=== PATIENT | male | born 1950 | race Caucasian/White ===

== ENCOUNTER 2017-01-30 08:00 | Outpatient (CLI) | payer MEDICARE, MEDICAID | END 2017-01-30 08:01 | disposition home or self-care (01) | DX: E11.9 Type 2 diabetes mellitus without complications (principal); E78.5 Hyperlipidemia, unspecified; Z12.5 Encounter for screening for malignant neoplasm of prostate | CPT/HCPCS: 36415; 80053; 80061; 82043; 83036; 84443; G0103 ==

== ENCOUNTER 2017-05-08 08:00 | Outpatient (CLI) | payer MEDICARE, MEDICAID | END 2017-05-08 23:59 | disposition home or self-care (01) | DX: R10.9 Unspecified abdominal pain (principal) ==

== ENCOUNTER 2017-05-15 07:11 | Outpatient (CLI) | payer MEDICARE, MEDICAID ==
--- NOTE | 2017-05-15 14:05 | Ultrasound Report ---
ABDOMINAL ULTRASOUND: 05/15/2017 CLINICAL HISTORY: The patient has chronic abdominal pain. TECHNIQUE: Real-time scanning was performed with international representative static images obtained. FINDINGS: The liver appears normal. It has a length of 15.5 cm. The portal vein shows normal hepatop etal flow. The gallbladder shows no wall thickening. No calculi are seen. The common hepatic/common bile duct me asure 3.5 mm. This is within normal limits. Head and body of the pancreas are visualized and normal. The pancreatic tail is obscured by bowel gas. The right kidney measures 11.9 cm without pyelocaliceal system distention. The left kidney measures 1 1.8 cm. There is a cyst extending from the posterior mid portion of the left kidney measuring 1.3 cm by 0.9 cm by 1.3 cm. The spleen is within normal limits. The spleen has a length of 10.2 cm. The abdominal aorta shows no aneurysm. It has a diameter proximally of 2.3 cm. Its mid diameter is 1. 8 cm. Its distal diameter is 1.5 cm by 1.7 cm. IMPRESSION: AN 1.3 CM BY 0.9 CM BY 1.3 CM LEFT RENAL CYST IS NOTED WITHOUT OTHER ABNORMALITY. JOB #: [id number] EXT JOB #:[id number]
== END 2017-05-15 07:12 | disposition home or self-care (01) ==
LOC: DI 07:11
PROVIDERS: ATTEND Nurse Practitioner Family
DX: Q61.01 Congenital single renal cyst (principal)
CPT/HCPCS: 76700

== ENCOUNTER 2017-07-05 08:29 | Outpatient (CLI) | payer MEDICARE, MEDICAID ==
[2017-07-05 11:13] LABS: HEMOGLOBIN A1C 1.32 g/dL
== END 2017-07-05 08:30 | disposition home or self-care (01) ==
LOC: LAB.F 08:29
PROVIDERS: ATTEND Nurse Practitioner Family
DX: E11.9 Type 2 diabetes mellitus without complications (principal)
CPT/HCPCS: 36415; 82043; 83036

== ENCOUNTER 2017-12-11 09:02 | Outpatient (CLI) | payer MEDICARE, MEDICAID ==
[2017-12-11 18:12] LABS: HB2 TOTAL 17.9 g/dL; HEMOGLOBIN A1C 1.3 g/dL; HEMOGLOBIN A1C % 8.8 % (4.6-6.2)
[2017-12-11 18:19] LABS: ALBUMIN 4.5 g/dL (3.2-5.5); ALBUMIN/GLOBULIN RATIO 1.7 (1.0-2.2); ALKALINE PHOSPHATASE 85 IU/L (42-121); ALT ALANINE AMINOTRANSFERASE 22 IU/L (10-60); AST ASPARTATE AMINOTRANSFERASE 18 IU/L (10-42); BILIRUBIN,TOTAL 0.6 mg/dL (0.2-1.0); BUN - BLOOD UREA NITROGEN 11 mg/dL (6-20); CALCIUM 9.1 mg/dL (8.5-10.3); CARBON DIOXIDE - CO2 22 mmol/L (21-32); CHLORIDE 100 mmol/L (101-111); CHOL/HDL RATIO 5.4 (<5.0); CHOLESTEROL 152 mg/dL; CREATININE 0.7 mg/dL (0.6-1.2); GFR - MDRD 113 (>89); GLUCOSE 230 mg/dL (70-100); HDL CHOLESTEROL 28 mg/dL; LDL CHOLESTEROL,CALCULATED 87 mg/dL; LDL/HDL RATIO 3.1 (<3.6); SODIUM 134 mmol/L (135-145); TOTAL PROTEIN 7.2 g/dL (6.7-8.2); VLDL CHOLESTEROL 37 mg/dL
== END 2017-12-11 09:03 | disposition home or self-care (01) ==
LOC: LAB.S 09:02
PROVIDERS: ATTEND Nurse Practitioner Family
DX: I10 Essential (primary) hypertension (principal); E11.9 Type 2 diabetes mellitus without complications; Z12.5 Encounter for screening for malignant neoplasm of prostate
CPT/HCPCS: 36415; 80053; 80061; 83036; G0103; 83721; 84153

== ENCOUNTER 2018-06-11 08:00 | Outpatient (CLI) | payer MEDICARE, MEDICAID ==
[2018-06-11 18:03] LABS: BASOPHILS # (AUTO) 0.1 10^3/uL (0.0-0.1); BASOPHILS % (AUTO) 0.6 %; EOSINOPHILS # (AUTO) 0.2 10^3/uL (0.0-0.7); EOSINOPHILS % (AUTO) 1.9 %; HGB - HEMOGLOBIN 14.6 g/dL (14.0-18.0); LYMPHOCYTES # (AUTO) 1.5 10^3/uL (1.5-3.5); LYMPHOCYTES % (AUTO) 11.9 %; MEAN CORPUSCULAR HEMOGLOBIN 31.3 pg (27.0-31.0); MEAN CORPUSCULAR HGB CONC 33.9 g/dL (32.0-36.0); MEAN CORPUSCULAR VOLUME 92.3 fL (80.0-94.0); MONOCYTES # (AUTO) 0.6 10^3/uL (0.0-1.0); MONOCYTES % (AUTO) 4.7 %; NEUTROPHILS # (AUTO) 9.9 10^3/uL (1.5-6.6); NEUTROPHILS % (AUTO) 80.9 %; PLT - PLATELET COUNT 209 10^3/uL (130-450); RED BLOOD COUNT 4.66 10^6/uL (4.70-6.10); RED CELL DISTRIBUTION WIDTH 14.2 % (12.0-15.0); WHITE BLOOD COUNT 12.3 x10^3/uL (4.8-10.8)
[2018-06-11 18:25] LABS: CALCIUM 8.9 mg/dL (8.5-10.3); CREATININE 0.6 mg/dL (0.6-1.2)
[2018-06-11 20:17] LABS: HB2 TOTAL 15.4 g/dL; HEMOGLOBIN A1C 1.02 g/dL; HEMOGLOBIN A1C % 8.2 % (4.6-6.2)
== END 2018-06-11 08:01 | disposition home or self-care (01) ==
LOC: LAB.S 08:00
PROVIDERS: ATTEND Nurse Practitioner Family
DX: E11.9 Type 2 diabetes mellitus without complications (principal); I10 Essential (primary) hypertension; R10.13 Epigastric pain
CPT/HCPCS: 36415; 80048; 83036; 85025

== ENCOUNTER 2018-08-07 13:06 | Outpatient (CLI) | payer MEDICARE ==
[2018-08-07 17:49] LABS: ALBUMIN 4.4 g/dL (3.2-5.5); ALBUMIN/GLOBULIN RATIO 1.6 (1.0-2.2); BILIRUBIN,TOTAL 0.6 mg/dL (0.2-1.0); CREATININE 0.8 mg/dL (0.6-1.2); TOTAL PROTEIN 7.2 g/dL (6.7-8.2)
[2018-08-07 17:56] LABS: BASOPHILS # (AUTO) 0.1 10^3/uL (0.0-0.1); BASOPHILS % (AUTO) 0.6 %; EOSINOPHILS # (AUTO) 0.2 10^3/uL (0.0-0.7); EOSINOPHILS % (AUTO) 1.8 %; HGB - HEMOGLOBIN 15.5 g/dL (14.0-18.0); LYMPHOCYTES % (AUTO) 15.7 %; MEAN CORPUSCULAR HEMOGLOBIN 31.1 pg (27.0-31.0); MEAN CORPUSCULAR HGB CONC 33.5 g/dL (32.0-36.0); MEAN CORPUSCULAR VOLUME 92.9 fL (80.0-94.0); MONOCYTES # (AUTO) 0.7 10^3/uL (0.0-1.0); MONOCYTES % (AUTO) 5.4 %; NEUTROPHILS # (AUTO) 9.8 10^3/uL (1.5-6.6); NEUTROPHILS % (AUTO) 76.5 %; PLT - PLATELET COUNT 206 10^3/uL (130-450); RED BLOOD COUNT 4.99 10^6/uL (4.70-6.10); RED CELL DISTRIBUTION WIDTH 13.9 % (12.0-15.0); WHITE BLOOD COUNT 12.8 x10^3/uL (4.8-10.8)
== END 2018-08-07 13:07 | disposition home or self-care (01) ==
LOC: LAB.F 13:06
PROVIDERS: ATTEND Nurse Practitioner Family
DX: R10.9 Unspecified abdominal pain (principal)
CPT/HCPCS: 36415; 80053; 85025

== ENCOUNTER 2018-08-16 08:12 | Day surgery (SDC) | payer MEDICAID, MEDICARE ==
[2018-08-16] MEDS ORDERED: LACTATED RINGERS 1,000 ML IV ONE (09:09)
[2018-08-16] MEDS ORDERED: LIDO GARGLE 30 ML BOTTLE ONE (09:19)
[2018-08-16] MEDS ORDERED: fentaNYL 250 MCG/5 ML VIAL IVP ONE (09:40)
[2018-08-16] MEDS ORDERED: MIDAZOLAM 2 MG/2 ML VIAL IVP ONE (09:40)
[2018-08-16] MEDS ORDERED: LIDO GARGLE 30 ML BOTTLE TOP ONE (09:45)
[2018-08-16 11:05] VITALS: BP 129/77
== END 2018-08-16 08:13 | disposition home or self-care (01) ==
LOC: SDS 08:12
PROVIDERS: ATTEND Internal Medicine Gastroenterology
PROC: 0DBK8ZX Excision of Ascending Colon, Via Natural or Artificial Opening Endoscopic, Diagnostic (ICD-10-PCS; 2018-08-16)
PROC: 0DB38ZX Excision of Lower Esophagus, Via Natural or Artificial Opening Endoscopic, Diagnostic (ICD-10-PCS; 2018-08-16)
PROC: 0DB78ZX Excision of Stomach, Pylorus, Via Natural or Artificial Opening Endoscopic, Diagnostic (ICD-10-PCS; 2018-08-16)
PROC: 0DB68ZZ Excision of Stomach, Via Natural or Artificial Opening Endoscopic (ICD-10-PCS; 2018-08-16)
PROC: 0DBN8ZZ Excision of Sigmoid Colon, Via Natural or Artificial Opening Endoscopic (ICD-10-PCS; principal; 2018-08-16 09:30)
PROC: 0DBP8ZZ Excision of Rectum, Via Natural or Artificial Opening Endoscopic (ICD-10-PCS; 2018-08-16 09:30)
DX: Z12.11 Encounter for screening for malignant neoplasm of colon (principal); D12.5 Benign neoplasm of sigmoid colon; D12.8 Benign neoplasm of rectum; D17.5 Benign lipomatous neoplasm of intra-abdominal organs; K57.30 Diverticulosis of large intestine without perforation or abscess without bleeding; K29.70 Gastritis, unspecified, without bleeding; K22.9 Disease of esophagus, unspecified; Z80.0 Family history of malignant neoplasm of digestive organs; F17.210 Nicotine dependence, cigarettes, uncomplicated; I10 Essential (primary) hypertension; E78.5 Hyperlipidemia, unspecified; F43.20 Adjustment disorder, unspecified; J30.9 Allergic rhinitis, unspecified; F19.11 Other psychoactive substance abuse, in remission; Z79.84 Long term (current) use of oral hypoglycemic drugs; Z72.89 Other problems related to lifestyle; Z85.820 Personal history of malignant melanoma of skin
CPT/HCPCS: 43239; 45380; 45385; 93005; A9270; J3010; J7120

== ENCOUNTER 2018-09-03 08:28 | Outpatient (CLI) | payer MEDICARE ==
[2018-09-03] MEDS ORDERED: IOPAMIDOL-300 100 ML VIAL ONE (08:35)
[2018-09-03] MEDS ORDERED: IOTHALAMATE MEGLUMINE 50 ML VIAL ONE (08:36)
[2018-09-03] MEDS ORDERED: IOVERSOL 320 50 ML VIAL ONE (08:37)
[2018-09-03] MEDS ORDERED: IOPAMIDOL-300 100 ML VIAL IVP ONE (09:47)
--- NOTE | 2018-09-03 11:00 | CT Report ---
Reason: ABDOMINAL PAIN, CHRONIC Procedure Date: 09/03/2018 Accession Number: [id number] / [id number] Procedure: CT - Abdomen/Pelvis W/ CPT Code: FULL RESULT: EXAM: CT ABDOMEN AND PELVIS EXAM DATE: 09/03/2018 09:40 AM. CLINICAL HISTORY: Abdominal pain, chronic. COMPARISONS: None. TECHNIQUE: Routine helical CT imaging was performed through the abdomen and pelvis. IV contrast: Isovue 300 100 mL. Enteric contrast: Yes. Reconstructions: Coronal and sagittal. In accordance with CT protocol optimization, one or more of the following dose reduction techniques were utilized for this exam: automated exposure control, adjustment of mA and/or KV based on patient size, or use of iterative reconstructive technique. FINDINGS: Lung Bases: Unremarkable. Liver: Normal. No masses. Gallbladder/Bile Ducts: Unremarkable. Spleen: Normal. Pancreas: Normal. Adrenal Glands: Normal. Kidneys: Normal. No masses or hydronephrosis. Peritoneal Cavity/Bowel: Marked diverticulosis throughout the descending and sigmoid colon, no active diverticulitis. No free fluid, free air or adenopathy. No masses or acute inflammatory process. The appendix is well visualized and normal. Pelvic Organs: Bladder is markedly distended and there is heterogeneous enhancement of the subjectively enlarged prostate gland, correlate to bladder outlet obstruction. Vasculature: Atherosclerosis without aneurysm. Bones: No aggressive osseous lesions. Other: None. IMPRESSION: Diverticulosis. Prominent prostate and markedly distended bladder should be correlated to symptomatic bladder outlet obstruction/BPH. RADIA
== END 2018-09-03 08:29 | disposition home or self-care (01) ==
LOC: DI 08:28
PROVIDERS: ATTEND Internal Medicine Gastroenterology
DX: K57.30 Diverticulosis of large intestine without perforation or abscess without bleeding (principal); R10.9 Unspecified abdominal pain; G89.29 Other chronic pain
CPT/HCPCS: 74177; 93005; Q9967

== ENCOUNTER 2018-11-26 08:00 | Outpatient (CLI) | payer MEDICARE ==
[2018-11-26 18:02] LABS: BUN - BLOOD UREA NITROGEN 13 mg/dL (6-20); CALCIUM 9.2 mg/dL (8.5-10.3); CARBON DIOXIDE - CO2 27 mmol/L (21-32); CHLORIDE 100 mmol/L (101-111); CHOL/HDL RATIO 3.5 (<5.0); CHOLESTEROL 136 mg/dL; CREATININE 0.6 mg/dL (0.6-1.2); GFR - MDRD 134 (>89); GLUCOSE 187 mg/dL (70-100); HDL CHOLESTEROL 39 mg/dL; LDL CHOLESTEROL,CALCULATED 78 mg/dL; SODIUM 135 mmol/L (135-145); VLDL CHOLESTEROL 19 mg/dL
[2018-11-26 19:33] LABS: HB2 TOTAL 16.4 g/dL; HEMOGLOBIN A1C 0.84 g/dL; HEMOGLOBIN A1C % 6.8 % (4.6-6.2)
== END 2018-11-26 23:59 | disposition home or self-care (01) ==
LOC: LAB.S 08:00
PROVIDERS: ATTEND Nurse Practitioner Family
DX: E11.65 Type 2 diabetes mellitus with hyperglycemia (principal); E78.5 Hyperlipidemia, unspecified; Z12.5 Encounter for screening for malignant neoplasm of prostate
CPT/HCPCS: 36415; 80048; 80061; 82043; 83036; G0103; 83721; 84153

== ENCOUNTER 2019-07-18 09:29 | Outpatient (CLI) | payer MEDICARE, MEDICAID ==
[2019-07-18 17:33] LABS: ALBUMIN 4.3 g/dL (3.2-5.5); ALBUMIN/GLOBULIN RATIO 1.4 (1.0-2.2); BILIRUBIN,TOTAL 0.6 mg/dL (0.2-1.0); CALCIUM 9.1 mg/dL (8.5-10.3); CREATININE 0.7 mg/dL (0.6-1.2); TOTAL PROTEIN 7.3 g/dL (6.7-8.2)
[2019-07-18 17:34] LABS: HB2 TOTAL 15.8 g/dL; HEMOGLOBIN A1C 0.93 g/dL; HEMOGLOBIN A1C % 7.5 % (4.6-6.2)
== END 2019-07-18 09:30 | disposition home or self-care (01) ==
LOC: LAB.S 09:29
PROVIDERS: ATTEND Internal Medicine
DX: E11.65 Type 2 diabetes mellitus with hyperglycemia (principal)
CPT/HCPCS: 36415; 80053; 83036

== ENCOUNTER 2019-09-20 08:55 | Outpatient (CLI) | payer MEDICARE, MEDICAID ==
[2019-09-20 10:50] LABS: HB2 TOTAL 15.1 g/dL; HEMOGLOBIN A1C 0.94 g/dL; HEMOGLOBIN A1C % 7.8 % (4.6-6.2)
== END 2019-09-20 08:56 | disposition home or self-care (01) ==
LOC: LAB.S 08:55
PROVIDERS: ATTEND Internal Medicine
DX: E11.65 Type 2 diabetes mellitus with hyperglycemia (principal)
CPT/HCPCS: 36415; 83036

== ENCOUNTER 2020-06-01 14:09 | Inpatient (IN) | payer MEDICARE, MEDICAID ==
[2020-06-01] MEDS ORDERED: SODIUM CHLORIDE 0.9% 1,000 ML IV STA ×2 (14:15→15:51)
[2020-06-01] MEDS ORDERED: HYDROmorphone 1 MG/ML CARPUJECT IVP STA (14:15)
--- NOTE | 2020-06-01 14:19 | ED Physician Documentation ---
PD HPI ABD PAIN - Stated complaint Stated Complaint: WEAKNESS - History obtained from History obtained from: Patient, EMS - Additional information Additional information: 69-year-old gentleman with type 2 diabetes presents with 5 days of abdominal pain, vomiting and diarrhea. He is also had episodic sharp and dull chest pain since last night. It is not exertional. There is no associated sweats but he has been short of breath. No history of coronary disease. No history of abdominal surgeries. No sick contacts, "I have been self isolating only leaving the house to go to the gas station and the [employer] store." Review of Systems Ten Systems: 10 systems reviewed and negative Constitutional: reports: Reviewed and negative Eyes: reports: Reviewed and negative Cardiac: reports: Chest pain / pressure. denies: Palpitations, Pedal edema, Calf pain Respiratory: reports: Dyspnea GI: reports: Abdominal Pain, Nausea, Vomiting, Diarrhea PD PAST MEDICAL HISTORY - Past Medical History Cardiovascular: Hypertension Respiratory: None GI: Other : None HEENT: None Psych: Anxiety, Panic attacks Musculoskeletal: Osteoarthritis, Chronic back pain Derm: None - Past Surgical History Derm: Skin cancer surgery - Present Medications Home Medications: Ambulatory Orders Medication Instructions Recorded Confirmed Lisinopril 40 mg PO DAILY 04/07/16 06/01/20 Sucralfate [Carafate] 1 gm PO QID 08/15/18 06/01/20 Gabapentin 300 mg PO DAILY 06/01/20 06/01/20 Insulin Glargine [Lantus Solostar] 5 units DAILY 06/01/20 06/01/20 Pantoprazole Sodium 20 mg PO DAILY 06/01/20 06/01/20 glipiZIDE [Glipizide] 1 tab-cap PO DAILY 06/01/20 06/01/20 - Allergies Allergies/Adverse Reactions: Allergies Allergy/AdvReac Type Severity Reaction Status Date / Time metformin AdvReac Intermediate GI Verified 06/01/20 14:41 sulfamethoxazole AdvReac Intermediate GI Verified 06/01/20 14:41 [From Bactrim] trimethoprim [From Bactrim] AdvReac Intermediate GI Verified 06/01/20 14:41 iodine AdvReac Unknown Verified 06/01/20 14:41 - Family History Family history: reports: Non contributory PD ED PE NORMAL - Vitals Vital signs reviewed: Yes - General General: Alert and oriented X 3, No acute distress - HEENT HEENT: PERRL, EOMI - Neck Neck: Supple, no meningeal sign, No bony TTP - Cardiac Cardiac: Other (Mild tachycardia, regular, no murmur) - Respiratory Respiratory: No respiratory distress, Clear bilaterally - Abdomen Abdomen: Other (Mild upper abdominal tenderness without surgical signs) - Back Back: No CVA TTP, No spinal TTP - Derm Derm: Normal color, Warm and dry - Extremities Extremities: No edema, No calf tenderness / cord - Neuro Neuro: Alert and oriented X 3, Normal speech Results - Vitals Vitals: Vital Signs - 24 hr 06/01/20 06/01/20 14:20 16:22 Temperature 36.7 C Heart Rate 100 86 Respiratory 18 16 Rate Blood Pressure 169/96 H 167/92 H O2 Saturation 100 99 Oxygen O2 Source Room air - EKG (time done) 1411 Rate: Rate (enter#) (100) Rhythm: NSR [place]: Normal Intervals: Normal SC QRS: Normal Ischemia: Normal ST segments Computer interpretation: Agree with computer - Labs Labs: Laboratory Tests 06/01/20 06/01/20 06/01/20 14:25 14:25 14:25 WBC 23.1 H RBC 5.52 Hgb 17.4 Hct 47.9 MCV 86.8 MCH 31.5 H MCHC 36.3 H RDW 12.2 Plt Count 303 MPV 10.2 Neut # (Auto) 20.8 H Lymph # (Auto) 1.1 L [place] # (Auto) 0.9 Eos # (Auto) 0.0 Baso # (Auto) 0.1 Absolute Nucleated RBC 0.00 Nucleated RBC % 0.0 Manual Slide Review Indicated RBC Morph Micro Appear 1+ ANISOCYTOSIS VBG pH VBG pCO2 VBG pO2 VBG HCO3 VBG Total CO2 VBG O2 Saturation VBG Base Excess Sodium 132 L Potassium 4.0 Chloride 93 L Carbon Dioxide 18 L Anion Gap 21.0 H BUN 26 H Creatinine 1.0 Estimated GFR (MDRD) 74 L Glucose 307 H Lactic Acid Calcium 9.0 Total Bilirubin 1.3 H AST 18 ALT 19 Alkaline Phosphatase 81 Troponin I High Sens 6.3 Total Protein 7.5 Albumin 4.5 Globulin 3.0 Albumin/Globulin Ratio 1.5 Lipase 33 Urine Color Urine Clarity Urine pH Ur Specific Equality Urine Protein Urine Glucose (UA) Urine Ketones Urine Occult Blood Urine Nitrite Urine Bilirubin Urine Urobilinogen Ur Leukocyte Esterase Ur Microscopic Review Urine Culture Comments Serum Ketones NEGATIVE 06/01/20 06/01/20 06/01/20 14:25 14:25 16:45 WBC RBC Hgb Hct MCV MCH MCHC RDW Plt Count MPV Neut # (Auto) Lymph # (Auto) [place] # (Auto) Eos # (Auto) Baso # (Auto) Absolute Nucleated RBC Nucleated RBC % Manual Slide Review RBC Morph Micro Appear VBG pH 7.477 H VBG pCO2 23.4 L VBG pO2 50.9 H VBG HCO3 16.9 L VBG Total CO2 17.6 L VBG O2 Saturation 88.2 H VBG Base Excess -4.1 L Sodium Potassium Chloride Carbon Dioxide Anion Gap BUN Creatinine Estimated GFR (MDRD) Glucose Lactic Acid 2.6 H Calcium Total Bilirubin AST ALT Alkaline Phosphatase Troponin I High Sens Total Protein Albumin Globulin Albumin/Globulin Ratio Lipase Urine Color YELLOW Urine Clarity CLEAR Urine pH 5.5 Ur Specific Equality 1.010 Urine Protein TRACE Urine Glucose (UA) >=1000 H Urine Ketones 15 H Urine Occult Blood TRACE-LYSE Urine Nitrite NEGATIVE Urine Bilirubin NEGATIVE Urine Urobilinogen 0.2 (NORMAL) Ur Leukocyte Esterase NEGATIVE Ur Microscopic Review NOT INDICATED Urine Culture Comments NOT INDICATED Serum Ketones - Rads (name of study) CT A/P Radiology: EMP read contemporaneously (Fluid-filled small bowel loops suggestive of gastroenteritis, thickening of the distal esophagus) PD MEDICAL DECISION MAKING - ED course ED course: 69-year-old gentleman with upper abdominal pain, history of gastritis and early Mora's esophagus. Now with more severe pain over the last 5 days with vomiting and diarrhea. Mild abdominal tenderness,'s white count of 23,000. Appears dry on labs, BUN elevated, bicarb down a bit. Also may be hemoconcentrated versus polycythemia from longstanding tobacco use. CT imaging demonstrates an enteritis, also thickening of the esophagus, it is been 2 years since his last upper endoscopy and may need a repeat. Given the significant leukocytosis, also intermittent chest pain in the setting of multiple risk factors Dr. Otero will observe. Dr. Michaels will consult. Departure - Departure Disposition: ED Place in Observation Clinical Impression: Esophageal thickening Abdominal pain Qualifiers: Abdominal location: epigastric Qualified Code(s): R10.13 - Epigastric pain Vomiting Qualifiers: Vomiting type: unspecified Vomiting Intractability: non-intractable Nausea presence: with nausea Qualified Code(s): R11.2 - Nausea with vomiting, unspecified Diarrhea Qualifiers: Diarrhea type: presumed infectious Qualified Code(s): R19.7 - Diarrhea, unspecified Chest pain Qualifiers: Chest pain type: unspecified Qualified Code(s): R07.9 - Chest pain, unspecified Diabetes Qualifiers: Diabetes mellitus type: type 2 Diabetes mellitus residential insulin use: with residential use Diabetes mellitus complication status: with hyperglycemia Qualified Code(s): E11.65 - Type 2 diabetes mellitus with hyperglycemia Leukocytosis Qualifiers: Leukocytosis type: leukemoid reaction Qualified Code(s): D72.823 - Leukemoid reaction Condition: Stable Discharge Date/Time: 06/01/20 17:52
[2020-06-01 14:33] LABS: BASOPHILS # (AUTO) 0.1 10^3/uL (0.0-0.1); BASOPHILS % (AUTO) 0.3 %; HGB - HEMOGLOBIN 17.4 g/dL (14.0-18.0); LYMPHOCYTES # (AUTO) 1.1 10^3/uL (1.5-3.5); LYMPHOCYTES % (AUTO) 4.8 %; MEAN CORPUSCULAR HEMOGLOBIN 31.5 pg (27.0-31.0); MEAN CORPUSCULAR HGB CONC 36.3 g/dL (32.0-36.0); MEAN CORPUSCULAR VOLUME 86.8 fL (80.0-94.0); MEAN PLATELET VOLUME 10.2 fL (7.4-11.4); MONOCYTES # (AUTO) 0.9 10^3/uL (0.0-1.0); MONOCYTES % (AUTO) 3.9 %; NEUTROPHILS # (AUTO) 20.8 10^3/uL (1.5-6.6); PLT - PLATELET COUNT 303 10^3/uL (130-450); RED BLOOD COUNT 5.52 10^6/uL (4.70-6.10); RED CELL DISTRIBUTION WIDTH 12.2 % (12.0-15.0); WHITE BLOOD COUNT 23.1 x10^3/uL (4.8-10.8)
[2020-06-01 14:34] LABS: VBG PCO2 23.4 mmHg (41-51); VBG PH 7.477 (7.31-7.41); VBG PO2 50.9 mmHg (25-47)
[2020-06-01 14:35] LABS: VBG BASE EXCESS -4.1 mmol/L (-2 - +2); VBG TOTAL CO2 17.6 mmol/L (24-29)
[2020-06-01 14:48] LABS: RBC MORPHOLOGY (MULTIPLE) 1+ ANISOCYTOSIS (NORMAL)
[2020-06-01 14:50] LABS: ALBUMIN 4.5 g/dL (3.2-5.5); ALBUMIN/GLOBULIN RATIO 1.5 (1.0-2.2); ALKALINE PHOSPHATASE 81 IU/L (42-121); ALT ALANINE AMINOTRANSFERASE 19 IU/L (10-60); AST ASPARTATE AMINOTRANSFERASE 18 IU/L (10-42); BILIRUBIN,TOTAL 1.3 mg/dL (0.2-1.0); BUN - BLOOD UREA NITROGEN 26 mg/dL (6-20); CARBON DIOXIDE - CO2 18 mmol/L (21-32); CHLORIDE 93 mmol/L (101-111); GLUCOSE 307 mg/dL (70-100); LIPASE 33 U/L (22-51); SODIUM 132 mmol/L (135-145); TOTAL PROTEIN 7.5 g/dL (6.7-8.2)
[2020-06-01 14:51] LABS: KETONES, SERUM (ACETEST) NEGATIVE (NEGATIVE)
[2020-06-01] MEDS ORDERED: IOVERSOL 320 100 ML VIAL IVP ONE (15:05)
[2020-06-01] MEDS ORDERED: LIDOCAINE VISCOUS 2% 15 ML UDC MM STA (15:19)
[2020-06-01] MEDS ORDERED: MAG HYDROX/AL HYDROX/SIMETH 30 ML UDC PO STA (15:19)
--- NOTE | 2020-06-01 15:31 | CT Report ---
PROCEDURE: Abdomen/Pelvis W INDICATIONS: IV only, upper abd pain, vomiting CONTRAST: IV CONTRAST: Optiray 320 ml: 100 PO CONTRAST: *NO PO CONTRAST TECHNIQUE: After the administration of oral and intravenous contrast, 5 mm thick sections acquired from the diap hragms to the symphysis. 5 mm thick coronal and sagittal reformats were acquired. For radiation dos e reduction, the following was used: automated exposure control, adjustment of mA and/or kV accordin g to patient size. COMPARISON: None. FINDINGS: Image quality: Excellent. ABDOMEN: Lung bases: Lung bases are clear. Heart size is normal. Solid organs: Liver and spleen are normal in size and enhancement. Gallbladder Biliary system is non dilated. Pancreas enhances normally. No adrenal nodules. Kidneys demonstrate normal size an d enhancement, without hydronephrosis. Peritoneum and bowel: Mild thickening of the distal esophagus. Diverticulum of the second portion of the duodenum. Bowel loops demonstrate otherwise normal wall thickness and caliber. There is fluid wi thin the small bowel. Normal appendix. No free fluid or air. Nodes and vessels: No retroperitoneal or mesenteric adenopathy by size criteria. Aorta and inferior vena cava are normal in size. Miscellaneous: No ventral hernias. PELVIS: Genitourinary: Bladder wall thickness is normal. Urinary bladder is moderately distended. Miscellaneous: No inguinal hernias or adenopathy. Bones: No suspicious bony lesions. No vertebral body compression fractures. IMPRESSION: 1. Fluid-filled small bowel loops, suggestive of gastroenteritis. 2. Normal appendix. 3. Thickening of the distal esophagus; initial further assessment with endoscopy is recommended to ex clude neoplasm. Reviewed by: John German MD on 06/01/2020 3:29 PM PDT Approved by: John German MD on 06/01/2020 3:29 PM PDT Station ID: [id number]
[2020-06-01] MEDS ORDERED: PANTOPRAZOLE 40 MG VIAL IVP STA (15:50)
[2020-06-01 16:50] LABS: BILIRUBIN,URINE NEGATIVE (NEGATIVE); GLUCOSE, URINE (UA) >=1000 mg/dL (NEGATIVE); KETONES,URINE (UA) 15 mg/dL (NEGATIVE); LEUKOCYTE ESTERASE, URINE NEGATIVE (NEGATIVE); NITRITE,URINE NEGATIVE (NEGATIVE); OCCULT BLOOD,URINE TRACE-LYSE (NEGATIVE); PH,URINE 5.5 PH (5.0-7.5); PROTEIN,URINE TRACE mg/dL (NEGATIVE); UROBILINOGEN,URINE 0.2 (NORMAL) E.U./dL (NORMAL)
[2020-06-01 16:52] LABS: CLARITY,URINE CLEAR (CLEAR)
[2020-06-01] MEDS ORDERED: ONDANSETRON 4 MG/2 ML VIAL IVP STA (17:14)
[2020-06-01] MEDS: ONDANSETRON 4 MG/2 ML VIAL IVP PRN (18:28)
--- NOTE | 2020-06-01 18:39 | PHARMACY PROGRESS NOTE ---
- Best Possible Medication History Admit Date and Time: 06/01/20 1711 Processed by: Pharmacy Medication History completed: Yes Secondary Source(s): Facility MAR as ONLY source As the person ultimately responsible for medication therapy, providers are able to order a medication from an existing home medication list in [facility] via the "Reconcile Routine" prior to Confirmation of that medication by legal support analyst. Such practice is discouraged except when the physician, in their clinical judgment, deems that a medical need exists for a medication without regard to previous use.
[2020-06-01] MEDS: DEXTROSE 5%-0.9% NACL 1,000 ML IV SCH (19:19)
--- NOTE | 2020-06-01 19:53 | HISTORY & PHYSICAL EXAMINATION ---
Chief Complaint - Chief Complaint Chief Complaint: abdominal pain, odynophagia/ dysphagia History of Present Illness - [facility] - History Obtained From Records Reviewed: yes History obtained from: patient - History of Present Illness HPI Comment/Other: Patient is a 69-year-old male with history of diabetes mellitus, hypertension, anxiety and GERD who presented to the ED via EMS with complaint of abdominal p ain, and odynophagia. His symptoms have been going on for weeks but got worse in the past 4 days to the point where he has not eaten anything for 4 days. Even attempting to drink water causes a sharp pain that radiates down to his stomach and causes nausea and vomiting. He does not have a fever but reports chills and night sweats. Over the past 1 year he has experienced 36lbs of unintentional weight loss. He has a history of smoking cigarettes for the past 47 years. In the ED work-up included a CT scan of the abdomen pelvis which showed distal esophageal thickening for which a neoplasm could not be excluded. An EGD was recommended. There were also findings suggestive of gastroenteritis. The patient had also reported diarrhea daily for the past 4 days. He was also found to have a lactic acid of 2.6 and a white blood cell count of 23. As a result of this findings he is being admitted for further work-up and treatment. History - Past Medical History Cardiovascular: reports: Hypertension Respiratory: reports: None Endocrine/Autoimmune: reports: Type 2 diabetes GI: reports: GERD, Other : reports: None HEENT: reports: None Psych: reports: Anxiety, Panic attacks Musculoskeletal: reports: Osteoarthritis, Chronic back pain Derm: reports: None MRSA Hx?: No - Past Surgical History Derm: reports: Skin cancer surgery (melanoma) - Family & Social History Family History Comment/Other: Father had diabetes. Mother had COPD. Social History Notes: Patient is a and lives alone. He smokes half a pack of cigarettes daily and has been smoking for 47 years. He also smokes marijuana. Denies alcohol use - POLST Patient has POLST: No POLST Status: Full Code Meds/Allgy - Home Medications Home Medications: Ambulatory Orders Medication Instructions Recorded Confirmed Lisinopril 40 mg PO DAILY 04/07/16 06/01/20 Sucralfate [Carafate] 1 gm PO QID 08/15/18 06/01/20 Gabapentin 300 mg PO DAILY 06/01/20 06/01/20 Insulin Glargine [Lantus Solostar] 5 units DAILY 06/01/20 06/01/20 Pantoprazole Sodium 20 mg PO DAILY 06/01/20 06/01/20 glipiZIDE [Glipizide] 1 tab-cap PO DAILY 06/01/20 06/01/20 - Allergies Allergies/Adverse Reactions: Allergies Allergy/AdvReac Type Severity Reaction Status Date / Time metformin AdvReac Intermediate GI Verified 06/01/20 14:41 sulfamethoxazole AdvReac Intermediate GI Verified 06/01/20 14:41 [From Bactrim] trimethoprim [From Bactrim] AdvReac Intermediate GI Verified 06/01/20 14:41 iodine AdvReac Unknown Verified 06/01/20 14:41 Review of Systems - Constitutional Constitutional: reports: Chills, Poor appetite, Night sweats, Weight loss - Eyes Eyes: denies: Pain - Ears, Nose & Throat Ears, Nose & Throat: reports: Other (odynophagia). denies: Ear pain - Cardiovascular Cariovascular: denies: Irregular heart rate, Palpitations, Chest pain, Edema, Lightheadedness - Respiratory Respiratory: denies: Cough, Wheezing, SOB at rest, SOB with exertion - Gastrointestinal Gastrointestinal: reports: Abdominal pain, Diarrhea, Nausea, Vomiting, Reflux/heartburn, Poor appetite. denies: Abdominal distention - Genitourinary Genitourinary: denies: Dysuria, Frequency, Urgency, Hematuria - Musculoskeletal Musculoskeletal: denies: Muscle pain, Back pain, Muscle aches, Stiffness - Integumentary Integumentary: denies: Rash, Pruritis, Lesions, Dryness - Neurological Neurological: denies: General weakness, Focal weakness, Headache, Dizziness - Psychiatric Psychiatric: reports: Anxiety - Endocrine Endocrine: denies: Polyuria, Polydypsia - Hematologic/Lymphatic Hematologic/Lymphatic: denies: Anemia, Bruising, Petechiae Prior Level of Functionality: Patient is independent of activities of daily living Exam - Vital Signs Vital Signs: Vital Signs x48h Temp Pulse Pulse Resp BP BP Pulse Ox 06/01/20 18:11 37.3 C 74 18 141/73 H 100 06/01/20 17:45 36.8 C 87 16 130/64 98 06/01/20 16:22 86 16 167/92 H 99 06/01/20 14:20 36.7 C 100 18 169/96 H 100 - Physical Exam General Appearance: positive: Alert, Moderate distress Eyes Bilateral: positive: PERRL, EOMI ENT: positive: Dry mucous membranes Neck: positive: No JVD, Trachea midline Respiratory: positive: Chest non-tender, No respiratory distress, Breath sounds nml. negative: Wheezes, Rales, Rhonchi Cardiovascular: positive: Regular rate & rhythm, No murmur Abdomen: positive: Non-tender, Nml bowel sounds. negative: No distention, Guarding, Rebound Skin: positive: Color nml, No rash, Warm, Dry Extremities: positive: Non-tender, Full ROM, Nml appearance, No pedal edema Neurologic/Psychiatric: positive: Oriented x3, Mood/affect nml Conclusion/Plan - Problem List (1) Abdominal pain Conclusion/Plan: CT scan showed distal esophageal thickening. Neoplasm could not be excluded thus EGD was recommended. Patient reports a 36 pound weight loss over the past year. Patient is an active smoker General surgery has been consulted for EGD. Patient will be n.p.o. after midnight except for medications. Abdominal pain could also be due to gastroenteritis. Supportive therapy has been initiated with IV hydration and pain management. Qualifiers: Abdominal location: epigastric Qualified Code(s): R10.13 - Epigastric pain (2) Leukocytosis Conclusion/Plan: Reactive versus infectious. We will monitor for now. Blood cultures have also been ordered Qualifiers: Leukocytosis type: leukemoid reaction Qualified Code(s): D72.823 - Leukemoid reaction (3) Diabetes Conclusion/Plan: Patient is on dextrose 5 and normal saline. Lantus 5 units nightly ordered. Sliding scale insulin and Accu-Cheks ordered. Hemoglobin A1c pending Qualifiers: Diabetes mellitus type: type 2 Diabetes mellitus senior care insulin use: with predatory animal exterminator use Diabetes mellitus complication status: with hyperglycemia Qualified Code(s): E11.65 - Type 2 diabetes mellitus with hyperglycemia; Z79.4 - MCC (current) use of insulin (4) GERD (gastroesophageal reflux disease) Conclusion/Plan: Protonix ordered Qualifiers: Esophagitis presence: with esophagitis Qualified Code(s): K21.0 - Gastro- esophageal reflux disease with esophagitis (5) Anxiety Conclusion/Plan: Ativan 0.5 mg p.o. twice daily PRN (6) Diabetic neuropathy Conclusion/Plan: Gabapentin 300 mg every afternoon ordered. (7) Hypertension Conclusion/Plan: On lisinopril 20 mg p.o. daily - Lab Results Fish Bones: 06/01/20 14:25 06/01/20 14:25 Core Measures - Anticipated LOS I expect patient to be DC'd or transferred within 96 hours.: Yes - DVT/VTE - Prophylaxis VTE/DVT Device ordered at admit?: Yes
[2020-06-01] MEDS ORDERED: LORazepam 0.5 MG TABLET PO PRN (19:56)
[2020-06-01] MEDS: HYDROmorphone 0.5 MG/0.5 ML SYRINGE IVP PRN ×2 (20:42→23:54)
[2020-06-01] MEDS ORDERED: GABAPENTIN 300 MG CAPSULE PO SCH (21:00)
[2020-06-01] MEDS ORDERED: INSULIN ASPART 300 UNIT/3 ML PEN SUBQ SCH (21:00)
[2020-06-01] MEDS: lisinopriL 20 MG TABLET PO SCH (21:00)
[2020-06-01] MEDS: INSULIN GLARGINE 300 UNIT/3 ML PEN SUBQ SCH (21:10)
[2020-06-01] MEDS: SODIUM CHLORIDE FLUSH 0.9% 10 ML SYRINGE IVP SCH (23:50)
[2020-06-02] MEDS: ONDANSETRON 4 MG/2 ML VIAL IVP PRN ×3 (00:44→13:02)
[2020-06-02] MEDS: DEXTROSE 5%-0.9% NACL 1,000 ML IV SCH ×2 (05:15→15:43)
[2020-06-02 05:41] LABS: BASOPHILS # (AUTO) 0.1 10^3/uL (0.0-0.1); BASOPHILS % (AUTO) 0.4 %; EOSINOPHILS # (AUTO) 0.1 10^3/uL (0.0-0.7); EOSINOPHILS % (AUTO) 0.5 %; HGB - HEMOGLOBIN 14.6 g/dL (14.0-18.0); LYMPHOCYTES # (AUTO) 2.5 10^3/uL (1.5-3.5); LYMPHOCYTES % (AUTO) 13.3 %; MEAN CORPUSCULAR HEMOGLOBIN 31.2 pg (27.0-31.0); MEAN CORPUSCULAR HGB CONC 34.4 g/dL (32.0-36.0); MEAN CORPUSCULAR VOLUME 90.6 fL (80.0-94.0); MEAN PLATELET VOLUME 10.2 fL (7.4-11.4); MONOCYTES # (AUTO) 1.4 10^3/uL (0.0-1.0); MONOCYTES % (AUTO) 7.2 %; NEUTROPHILS # (AUTO) 14.8 10^3/uL (1.5-6.6); NEUTROPHILS % (AUTO) 77.8 %; PLT - PLATELET COUNT 216 10^3/uL (130-450); RED BLOOD COUNT 4.68 10^6/uL (4.70-6.10); RED CELL DISTRIBUTION WIDTH 12.6 % (12.0-15.0); WHITE BLOOD COUNT 19.1 x10^3/uL (4.8-10.8)
[2020-06-02 05:50] LABS: CALCIUM 8.4 mg/dL (8.5-10.3); CREATININE 0.7 mg/dL (0.6-1.2)
[2020-06-02 06:18] LABS: HB2 TOTAL 15.9 g/dL; HEMOGLOBIN A1C 0.83 g/dL; HEMOGLOBIN A1C % 6.9 % (4.6-6.2)
[2020-06-02] MEDS: HYDROmorphone 0.5 MG/0.5 ML SYRINGE IVP PRN ×2 (06:29→13:01)
[2020-06-02] MEDS ORDERED: GABAPENTIN 300 MG CAPSULE PO SCH (10:00)
[2020-06-02] MEDS: GABAPENTIN 300 MG CAPSULE PO SCH ×3 (10:29→20:49)
[2020-06-02] MEDS: NICOTINE 14 MG PATCH TOP SCH (10:29)
[2020-06-02] MEDS: lisinopriL 20 MG TABLET PO SCH (10:32)
[2020-06-02] MEDS: SODIUM CHLORIDE FLUSH 0.9% 10 ML SYRINGE IVP SCH ×3 (10:36→23:09)
[2020-06-02] MEDS: INSULIN REGULAR HUMAN 300 UNIT/3 ML VIAL SUBQ SCH ×2 (10:42→13:02)
--- NOTE | 2020-06-02 10:51 | ANESTHESIA ---
Pre-Anesthesia VS, & Labs - Diagnosis Dysphagia, painful swallowing - Procedure EGD Vital Signs: Temp Pulse Resp BP Pulse Ox 37.0 C 73 18 106/61 99 06/02/20 07:35 06/02/20 07:35 06/02/20 07:35 06/02/20 07:35 06/02/20 07:35 Height 5 ft 11 in Weight (kg) 64.5 kg Body Mass Index 19.8 - NPO >8 hours - Lab Results Current Lab Results: Laboratory Tests 06/02/20 05:32: Lactic Acid 0.8 06/02/20 05:32: Sodium 135, Potassium 3.9, Chloride 106, Carbon Dioxide 22, Anion Gap 7.0, BUN 14, Creatinine 0.7, Estimated GFR (MDRD) 112, Glucose 183 H, Calcium 8.4 L 06/02/20 05:32: WBC 19.1 H, RBC 4.68 L, Hgb 14.6, Hct 42.4, MCV 90.6, MCH 31.2 H , MCHC 34.4, RDW 12.6, Plt Count 216, MPV 10.2, Neut # (Auto) 14.8 H, Lymph # (Auto) 2.5, Johnson # (Auto) 1.4 H, Eos # (Auto) 0.1, Baso # (Auto) 0.1, Absolute Nucleated RBC 0.00, Nucleated RBC % 0.0 06/02/20 05:32: Glycated Hemoglobin 6.9 H, Estim Average Glucose 151 H 06/01/20 14:25: VBG pH 7.477 H, VBG pCO2 23.4 L, VBG pO2 50.9 H, VBG HCO3 16.9 L , VBG Total CO2 17.6 L, VBG O2 Saturation 88.2 H, VBG Base Excess -4.1 L 06/01/20 14:25: Lactic Acid 2.6 H 06/01/20 14:25: Troponin I High Sens 6.3 06/01/20 14:25: Sodium 132 L, Potassium 4.0, Chloride 93 L, Carbon Dioxide 18 L, Anion Gap 21.0 H, BUN 26 H, Creatinine 1.0, Estimated GFR (MDRD) 74 L, Glucose 307 H, Calcium 9.0, Total Bilirubin 1.3 H, AST 18, ALT 19, Alkaline Phosphatase 81, Total Protein 7.5, Albumin 4.5, Globulin 3.0, Albumin/Globulin Ratio 1.5, Lipase 33, Serum Ketones NEGATIVE 06/01/20 14:25: WBC 23.1 H, RBC 5.52, Hgb 17.4, Hct 47.9, MCV 86.8, MCH 31.5 H, MCHC 36.3 H, RDW 12.2, Plt Count 303, MPV 10.2, Neut # (Auto) 20.8 H, Lymph # (Auto) 1.1 L, Johnson # (Auto) 0.9, Eos # (Auto) 0.0, Baso # (Auto) 0.1, Absolute Nucleated RBC 0.00, Nucleated RBC % 0.0, Manual Slide Review Indicated, RBC Morph Micro Appear 1+ ANISOCYTOSIS Lab results reviewed: Yes Fish Bones: 06/02/20 05:32 06/02/20 05:32 Home Medications and Allergies Home Medications: Ambulatory Orders Gabapentin 300 mg PO DAILY 06/01/20 Insulin Glargine [Lantus Solostar] 5 units DAILY 06/01/20 Pantoprazole Sodium 20 mg PO DAILY 06/01/20 glipiZIDE [Glipizide] 1 tab-cap PO DAILY 06/01/20 Gabapentin 300 mg PO TID 06/02/20 glipiZIDE [Glipizide] 15 mg PO BID 06/02/20 Active Medications Gabapentin (Neurontin) 300 mg PO TID [facility] Last Admin: 06/02/20 10:29 Dose: 300 mg Documented by: Hydromorphone HCl (Dilaudid Inj Syringe) 0.5 mg IVP Q3H PRN PRN Reason: PAIN Last Admin: 06/02/20 06:29 Dose: 0.5 mg Documented by: Dextrose/Sodium Chloride (D5ns) 1,000 mls @ 100 mls/hr IV .Q10H [facility] Last Admin: 06/02/20 05:15 Dose: 100 mls/hr Documented by: Insulin Glargine (Lantus Solostar) 5 unit SUBQ QPM MORE Last Admin: 06/01/20 21:10 Dose: 5 unit Documented by: Insulin Human Regular (Humulin R) 1 - 5 unit SUBQ Q6HR MORE; Protocol Last Admin: 06/02/20 10:42 Dose: 2 unit Documented by: Lisinopril (Zestril) 20 mg PO DAILY [facility] Last Admin: 06/02/20 10:32 Dose: 20 mg Documented by: Lorazepam (Ativan) 0.5 mg PO Q12H PRN PRN Reason: Anxiety Last Admin: 06/02/20 10:40 Dose: 0.5 mg Documented by: Nicotine (Nicoderm) 1 patch TOP DAILY [facility] Last Admin: 06/02/20 10:29 Dose: 1 patch Documented by: Non-Formulary Medication (Sucralfate [Carafate]) 1 gm PO QID [facility] Ondansetron HCl (Zofran Inj) 4 mg IVP Q6HR PRN PRN Reason: Nausea / Vomiting Last Admin: 06/02/20 06:28 Dose: 4 mg Documented by: Sodium Chloride (Normal Saline Flush 0.9%) 10 ml IVP PRN PRN PRN Reason: NEEDED PER PROVIDER ORDERS Sodium Chloride (Normal Saline Flush 0.9%) 10 ml IVP 0100,0900,1700 [facility] Last Admin: 06/02/20 10:36 Dose: Not Given Documented by: Lisinopril 40 mg PO DAILY 04/07/16 Sucralfate [Carafate] 1 gm PO QID 08/15/18 Gabapentin 300 mg PO DAILY 06/01/20 Insulin Glargine [Lantus Solostar] 5 units DAILY 06/01/20 Pantoprazole Sodium 20 mg PO DAILY 06/01/20 glipiZIDE [Glipizide] 1 tab-cap PO DAILY 06/01/20 Gabapentin 300 mg PO TID 06/02/20 glipiZIDE [Glipizide] 15 mg PO BID 06/02/20 Allergies/Adverse Reactions: Allergies Allergy/AdvReac Type Severity Reaction Status Date / Time metformin AdvReac Intermediate GI Verified 06/01/20 14:41 sulfamethoxazole AdvReac Intermediate GI Verified 06/01/20 14:41 [From Bactrim] trimethoprim [From Bactrim] AdvReac Intermediate GI Verified 06/01/20 14:41 iodine AdvReac Unknown Verified 06/01/20 14:41 Anes History & Medical History - Anesthetic History Anesthesia Complications: reports: No previous complications - Medical History Cardiovascular: reports: Hypertension Pulmonary: reports: None Gastrointestinal: reports: GERD, Other Urinary: reports: None Neuro: reports: Peripheral neuropathy (lower and upper extremities) Musculoskeletal: reports: Osteoarthritis, Chronic back pain Endocrine/Autoimmune: reports: Type 2 diabetes Blood Disorders: reports: None Skin: reports: None Smoking Status: Current every day smoker (1/2 pack per day for 50 years) Psychosocial: reports: Cannabis (smokes daily use) - Surgical History General: EGD Dermatologic: Skin cancer surgery (melanoma) Plan Anesthesia Type: MAC Consent for Procedure(s) Verified and Reviewed: Yes Code Status: Attempt Resuscitation ASA classification: 3-Severe systemic disease Is this case an emergency?: No
--- NOTE | 2020-06-02 11:20 | HISTORY & PHYSICAL EXAMINATION ---
Chief Complaint - Chief Complaint Chief Complaint: abdominal pain, nausea and vomiting Abdominal Pain HPI - History Obtained From Records Reviewed: Old records reviewed History obtained from: Family Exam limitations: No limitations - History of Present Illness Severity at the worst: Moderate Timing: Abrupt onset Duration: Days: (4 days) Associated symptoms: Other (diarrhea) HPI Comment/Other: He states 4 days ago he developed mid abdominal pain, nausea and vomiting, and diarrhea. He is improved in the hospital with medical treatment. He denies other symptoms ie cough, shortness of breath, etc. By chart review he has had weight loss over the last year. He has history of melanoma PMH/PSH - Past Medical History Cardiovascular: positive: Hypertension Respiratory: positive: None Neuro: positive: Peripheral neuropathy (lower and upper extremities) Endocrine/Autoimmune: positive: Type 2 diabetes GI: positive: GERD, Other : positive: None HEENT: positive: None Psych: positive: Anxiety, Panic attacks Musculoskeletal: positive: Osteoarthritis, Chronic back pain Derm: positive: None MRSA Hx?: No - Past Surgical History General: positive: EGD Derm: positive: Skin cancer surgery (melanoma) Social & Family Hx - Social History Does the pt smoke?: Yes Smoking Status: Current every day smoker (1/2 pack per day for 50 years) Does the pt drink ETOH?: No Does the pt have substance abuse?: Yes Substance Use and Type: Marijuana - POLST Patient has POLST: No POLST Status: Full Code Meds/Allgy - Home Medications Home Medications: Ambulatory Orders Medication Instructions Recorded Confirmed Lisinopril 40 mg PO DAILY 04/07/16 06/01/20 Sucralfate [Carafate] 1 gm PO QID 08/15/18 06/01/20 Insulin Glargine [Lantus Solostar] 7 units QPM 06/01/20 06/02/20 Pantoprazole Sodium 20 mg PO DAILY 06/01/20 06/01/20 Gabapentin 300 mg PO TID 06/02/20 06/02/20 glipiZIDE [Glipizide] 15 mg PO BID 06/02/20 06/02/20 - Allergies Allergies/Adverse Reactions: Allergies Allergy/AdvReac Type Severity Reaction Status Date / Time metformin AdvReac Intermediate GI Verified 06/01/20 14:41 sulfamethoxazole AdvReac Intermediate GI Verified 06/01/20 14:41 [From Bactrim] trimethoprim [From Bactrim] AdvReac Intermediate GI Verified 06/01/20 14:41 iodine AdvReac Unknown Verified 06/01/20 14:41 Review of Systems - Constitutional Constitutional: reports: Weight loss (36 lbs over the last year) - Other Findings Other Findings: 10 pt ros as above and below otherwise unremarkable Exam - Vital Signs Vital Signs: Vital Signs x48h Temp Pulse Resp BP Pulse Ox 06/02/20 07:35 37.0 C 73 18 106/61 99 06/02/20 04:25 37.1 C 77 20 121/60 99 - Physical Exam General Appearance: positive: No acute distress, Alert Eyes Bilateral: positive: PERRL, EOMI ENT: positive: No signs of dehydration Neck: positive: No JVD, Trachea midline Respiratory: positive: No respiratory distress Abdomen: positive: Non-tender, No distention Neurologic/Psychiatric: positive: Oriented x3 Comments/Other: ct ? thickened esophagus Results - Lab Results Fish Bones: 06/02/20 05:32 06/02/20 05:32 Other Lab Results: Lab Results x24hrs 06/02/20 06/02/20 06/02/20 Range/Units 05:32 05:32 05:32 WBC 19.1 H (4.8-10.8) x10^3/uL RBC 4.68 L (4.70-6.10) 10^6/uL Hgb 14.6 (14.0-18.0) g/dL Hct 42.4 (42.0-52.0) % MCV 90.6 (80.0-94.0) fL MCH 31.2 H (27.0-31.0) pg MCHC 34.4 (32.0-36.0) g/dL RDW 12.6 (12.0-15.0) % Plt Count 216 (130-450) 10^3/uL MPV 10.2 (7.4-11.4) fL Neut # (Auto) 14.8 H (1.5-6.6) 10^3/uL Lymph # (Auto) 2.5 (1.5-3.5) 10^3/uL Mifflin # (Auto) 1.4 H (0.0-1.0) 10^3/uL Eos # (Auto) 0.1 (0.0-0.7) 10^3/uL Baso # (Auto) 0.1 (0.0-0.1) 10^3/uL Absolute Nucleated RBC 0.00 x10^3/uL Nucleated RBC % 0.0 /100WBC Manual Slide Review RBC Morph Micro Appear (NORMAL) VBG pH (7.31-7.41) VBG pCO2 (41-51) mmHg VBG pO2 (25-47) mmHg VBG HCO3 (23-28) mmol/L VBG Total CO2 (24-29) mmol/L VBG O2 Saturation (60-80) % VBG Base Excess (-2 - +2) mmol/L Sodium 135 (135-145) mmol/L Potassium 3.9 (3.5-5.0) mmol/L Chloride 106 (101-111) mmol/L Carbon Dioxide 22 (21-32) mmol/L Anion Gap 7.0 (6-13) BUN 14 (6-20) mg/dL Creatinine 0.7 (0.6-1.2) mg/dL Estimated GFR (MDRD) 112 (>89) Glucose 183 H (70-100) mg/dL Glycated Hemoglobin (4.6-6.2) % Estim Average Glucose (70-100) Lactic Acid 0.8 (0.5-2.2) mmol/L Calcium 8.4 L (8.5-10.3) mg/dL Total Bilirubin (0.2-1.0) mg/dL AST (10-42) IU/L ALT (10-60) IU/L Alkaline Phosphatase (42-121) IU/L Troponin I High Sens (2.3-19.7) ng/L Total Protein (6.7-8.2) g/dL Albumin (3.2-5.5) g/dL Globulin (2.1-4.2) g/dL Albumin/Globulin Ratio (1.0-2.2) Lipase (22-51) U/L Urine Color Urine Clarity (CLEAR) Urine pH (5.0-7.5) PH Ur Specific Cypress (1.002-1.030) Urine Protein (NEGATIVE) mg/dL Urine Glucose (UA) (NEGATIVE) mg/dL Urine Ketones (NEGATIVE) mg/dL Urine Occult Blood (NEGATIVE) Urine Nitrite (NEGATIVE) Urine Bilirubin (NEGATIVE) Urine Urobilinogen (NORMAL) E.U./dL Ur Leukocyte Esterase (NEGATIVE) Ur Microscopic Review Urine Culture Comments Serum Ketones (NEGATIVE) 06/02/20 06/01/20 06/01/20 Range/Units 05:32 16:45 14:25 WBC (4.8-10.8) x10^3/uL RBC (4.70-6.10) 10^6/uL Hgb (14.0-18.0) g/dL Hct (42.0-52.0) % MCV (80.0-94.0) fL MCH (27.0-31.0) pg MCHC (32.0-36.0) g/dL RDW (12.0-15.0) % Plt Count (130-450) 10^3/uL MPV (7.4-11.4) fL Neut # (Auto) (1.5-6.6) 10^3/uL Lymph # (Auto) (1.5-3.5) 10^3/uL Mifflin # (Auto) (0.0-1.0) 10^3/uL Eos # (Auto) (0.0-0.7) 10^3/uL Baso # (Auto) (0.0-0.1) 10^3/uL Absolute Nucleated RBC x10^3/uL Nucleated RBC % /100WBC Manual Slide Review RBC Morph Micro Appear (NORMAL) VBG pH 7.477 H (7.31-7.41) VBG pCO2 23.4 L (41-51) mmHg VBG pO2 50.9 H (25-47) mmHg VBG HCO3 16.9 L (23-28) mmol/L VBG Total CO2 17.6 L (24-29) mmol/L VBG O2 Saturation 88.2 H (60-80) % VBG Base Excess -4.1 L (-2 - +2) mmol/L Sodium (135-145) mmol/L Potassium (3.5-5.0) mmol/L Chloride (101-111) mmol/L Carbon Dioxide (21-32) mmol/L Anion Gap (6-13) BUN (6-20) mg/dL Creatinine (0.6-1.2) mg/dL Estimated GFR (MDRD) (>89) Glucose (70-100) mg/dL Glycated Hemoglobin 6.9 H (4.6-6.2) % Estim Average Glucose 151 H (70-100) Lactic Acid (0.5-2.2) mmol/L Calcium (8.5-10.3) mg/dL Total Bilirubin (0.2-1.0) mg/dL AST (10-42) IU/L ALT (10-60) IU/L Alkaline Phosphatase (42-121) IU/L Troponin I High Sens (2.3-19.7) ng/L Total Protein (6.7-8.2) g/dL Albumin (3.2-5.5) g/dL Globulin (2.1-4.2) g/dL Albumin/Globulin Ratio (1.0-2.2) Lipase (22-51) U/L Urine Color YELLOW Urine Clarity CLEAR (CLEAR) Urine pH 5.5 (5.0-7.5) PH Ur Specific Cypress 1.010 (1.002-1.030) Urine Protein TRACE (NEGATIVE) mg/dL Urine Glucose (UA) >=1000 H (NEGATIVE) mg/dL Urine Ketones 15 H (NEGATIVE) mg/dL Urine Occult Blood TRACE-LYSE (NEGATIVE) Urine Nitrite NEGATIVE (NEGATIVE) Urine Bilirubin NEGATIVE (NEGATIVE) Urine Urobilinogen 0.2 (NORMAL) (NORMAL) E.U./dL Ur Leukocyte Esterase NEGATIVE (NEGATIVE) Ur Microscopic Review NOT INDICATED Urine Culture Comments NOT INDICATED Serum Ketones (NEGATIVE) 06/01/20 06/01/20 06/01/20 Range/Units 14:25 14:25 14:25 WBC (4.8-10.8) x10^3/uL RBC (4.70-6.10) 10^6/uL Hgb (14.0-18.0) g/dL Hct (42.0-52.0) % MCV (80.0-94.0) fL MCH (27.0-31.0) pg MCHC (32.0-36.0) g/dL RDW (12.0-15.0) % Plt Count (130-450) 10^3/uL MPV (7.4-11.4) fL Neut # (Auto) (1.5-6.6) 10^3/uL Lymph # (Auto) (1.5-3.5) 10^3/uL Mifflin # (Auto) (0.0-1.0) 10^3/uL Eos # (Auto) (0.0-0.7) 10^3/uL Baso # (Auto) (0.0-0.1) 10^3/uL Absolute Nucleated RBC x10^3/uL Nucleated RBC % /100WBC Manual Slide Review RBC Morph Micro Appear (NORMAL) VBG pH (7.31-7.41) VBG pCO2 (41-51) mmHg VBG pO2 (25-47) mmHg VBG HCO3 (23-28) mmol/L VBG Total CO2 (24-29) mmol/L VBG O2 Saturation (60-80) % VBG Base Excess (-2 - +2) mmol/L Sodium 132 L (135-145) mmol/L Potassium 4.0 (3.5-5.0) mmol/L Chloride 93 L (101-111) mmol/L Carbon Dioxide 18 L (21-32) mmol/L Anion Gap 21.0 H (6-13) BUN 26 H (6-20) mg/dL Creatinine 1.0 (0.6-1.2) mg/dL Estimated GFR (MDRD) 74 L (>89) Glucose 307 H (70-100) mg/dL Glycated Hemoglobin (4.6-6.2) % Estim Average Glucose (70-100) Lactic Acid 2.6 H (0.5-2.2) mmol/L Calcium 9.0 (8.5-10.3) mg/dL Total Bilirubin 1.3 H (0.2-1.0) mg/dL AST 18 (10-42) IU/L ALT 19 (10-60) IU/L Alkaline Phosphatase 81 (42-121) IU/L Troponin I High Sens 6.3 (2.3-19.7) ng/L Total Protein 7.5 (6.7-8.2) g/dL Albumin 4.5 (3.2-5.5) g/dL Globulin 3.0 (2.1-4.2) g/dL Albumin/Globulin Ratio 1.5 (1.0-2.2) Lipase 33 (22-51) U/L Urine Color Urine Clarity (CLEAR) Urine pH (5.0-7.5) PH Ur Specific [place] (1.002-1.030) Urine Protein (NEGATIVE) mg/dL Urine Glucose (UA) (NEGATIVE) mg/dL Urine Ketones (NEGATIVE) mg/dL Urine Occult Blood (NEGATIVE) Urine Nitrite (NEGATIVE) Urine Bilirubin (NEGATIVE) Urine Urobilinogen (NORMAL) E.U./dL Ur Leukocyte Esterase (NEGATIVE) Ur Microscopic Review Urine Culture Comments Serum Ketones NEGATIVE (NEGATIVE) 06/01/20 Range/Units 14:25 WBC 23.1 H (4.8-10.8) x10^3/uL RBC 5.52 (4.70-6.10) 10^6/uL Hgb 17.4 (14.0-18.0) g/dL Hct 47.9 (42.0-52.0) % MCV 86.8 (80.0-94.0) fL MCH 31.5 H (27.0-31.0) pg MCHC 36.3 H (32.0-36.0) g/dL RDW 12.2 (12.0-15.0) % Plt Count 303 (130-450) 10^3/uL MPV 10.2 (7.4-11.4) fL Neut # (Auto) 20.8 H (1.5-6.6) 10^3/uL Lymph # (Auto) 1.1 L (1.5-3.5) 10^3/uL Mifflin # (Auto) 0.9 (0.0-1.0) 10^3/uL Eos # (Auto) 0.0 (0.0-0.7) 10^3/uL Baso # (Auto) 0.1 (0.0-0.1) 10^3/uL Absolute Nucleated RBC 0.00 x10^3/uL Nucleated RBC % 0.0 /100WBC Manual Slide Review Indicated RBC Morph Micro Appear 1+ ANISOCYTOSIS (NORMAL) VBG pH (7.31-7.41) VBG pCO2 (41-51) mmHg VBG pO2 (25-47) mmHg VBG HCO3 (23-28) mmol/L VBG Total CO2 (24-29) mmol/L VBG O2 Saturation (60-80) % VBG Base Excess (-2 - +2) mmol/L Sodium (135-145) mmol/L Potassium (3.5-5.0) mmol/L Chloride (101-111) mmol/L Carbon Dioxide (21-32) mmol/L Anion Gap (6-13) BUN (6-20) mg/dL Creatinine (0.6-1.2) mg/dL Estimated GFR (MDRD) (>89) Glucose (70-100) mg/dL Glycated Hemoglobin (4.6-6.2) % Estim Average Glucose (70-100) Lactic Acid (0.5-2.2) mmol/L Calcium (8.5-10.3) mg/dL Total Bilirubin (0.2-1.0) mg/dL AST (10-42) IU/L ALT (10-60) IU/L Alkaline Phosphatase (42-121) IU/L Troponin I High Sens (2.3-19.7) ng/L Total Protein (6.7-8.2) g/dL Albumin (3.2-5.5) g/dL Globulin (2.1-4.2) g/dL Albumin/Globulin Ratio (1.0-2.2) Lipase (22-51) U/L Urine Color Urine Clarity (CLEAR) Urine pH (5.0-7.5) PH Ur Specific [place] (1.002-1.030) Urine Protein (NEGATIVE) mg/dL Urine Glucose (UA) (NEGATIVE) mg/dL Urine Ketones (NEGATIVE) mg/dL Urine Occult Blood (NEGATIVE) Urine Nitrite (NEGATIVE) Urine Bilirubin (NEGATIVE) Urine Urobilinogen (NORMAL) E.U./dL Ur Leukocyte Esterase (NEGATIVE) Ur Microscopic Review Urine Culture Comments Serum Ketones (NEGATIVE) Impression/Plan - Problem List Problem List: Nausea and vomiting, weight loss, and thickened distal esophagus on ct scan Plan EGD. Parq held and consent obtained
[2020-06-02] MEDS: SUCRALFATE 1 GM/10 ML UDC PO SCH ×3 (13:09→21:09)
[2020-06-02] MEDS ORDERED: LACTATED RINGERS 1,000 ML IV ONE (14:18)
[2020-06-02] MEDS ORDERED: LIDO GARGLE 30 ML BOTTLE PO ONE (14:23)
[2020-06-02] MEDS ORDERED: LIDO GARGLE 30 ML BOTTLE ONE (14:24)
[2020-06-02] MEDS ORDERED: BENZOCAINE/TETRACAINE/BUTAMBEN 20 GM TOP ONE (14:25)
--- NOTE | 2020-06-02 15:08 | ANESTHESIA POST OP EVALUATION ---
Anesthesia Post Eval - Post Anesthesia Eval Vitals: Last Vital Signs Temp 37.2 C 06/02/20 11:38 Pulse 76 06/02/20 11:38 Resp 16 06/02/20 11:38 BP 123/67 06/02/20 11:38 Pulse Ox 100 06/02/20 11:38 CV Function Including HR & BP: positive: Stable Pain Control: positive: Satisfactory Nausea & Vomiting: positive: Negative Mental Status: positive: Baseline Respiratory Status: Airway Patent Hydration Status: Satisfactory Anesthesia Complications: positive: None
--- NOTE | 2020-06-02 15:30 | PROVIDER PROGRESS NOTE ---
Assessment/Plan - Problem List (1) Dysphagia Assessment/Plan: Patient reported he feels better on today. Patient reported he had not eating anything for 4 days because he feel pain from mouth to her stomach when he tried to swallow. He feel hungry. Patient was consulted with GI surgeon, patient will have EGD we will follow-up. EGD was done and show patient has no neoplasma in the esophagus or stomach, but patient has multiple ulcers. We will give patient intravenous twice daily Protonix, continue Carafate. We will follow-up with biopsy results. We will give the patient softer diet (2) Abdominal pain Conclusion/Plan: Patient reported his abdominal pain is better, will continue pain control, we will continue Protonix twice daily. (3) Leukocytosis Conclusion/Plan: it is more likely Reactive. Patient has a history of elevated WBC. 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 twice daily PRN (6) Diabetic neuropathy Conclusion/Plan: Gabapentin 300 mg tid (7) Hypertension Conclusion/Plan: On lisinopril 20 mg p.o. daily - Current Meds Current Meds: Current Medications Generic Name Dose Route Start Last Admin Trade Name Freq PRN Reason Stop Dose Admin Gabapentin 300 mg 06/02/20 10:00 06/02/20 14:29 Neurontin PO Not Given TID MORE Hydromorphone HCl 0.5 mg 06/01/20 20:16 06/02/20 13:01 Dilaudid Inj Syringe IVP 0.5 mg Q3H PRN Administration PAIN Dextrose/Sodium Chloride 1,000 mls @ 100 mls/hr 06/01/20 18:30 06/02/20 15:20 D5ns IV Infused .Q10H MORE Infusion Insulin Glargine 5 unit 06/01/20 21:00 06/01/20 21:10 Lantus Solostar SUBQ 5 unit QPM MORE Administration Insulin Human Regular 1 - 5 unit 06/02/20 08:00 06/02/20 13:02 Humulin R SUBQ 2 unit Q6HR MORE Administration Protocol Lisinopril 20 mg 06/01/20 21:00 06/02/20 10:32 Zestril PO 20 mg DAILY MORE Administration Lorazepam 0.5 mg 06/01/20 19:56 06/02/20 10:40 Ativan PO 0.5 mg Q12H PRN Administration Anxiety Nicotine 1 patch 06/02/20 09:00 06/02/20 10:29 Nicoderm TOP 1 patch DAILY MORE Administration Ondansetron HCl 4 mg 06/01/20 17:16 06/02/20 13:02 Zofran Inj IVP 4 mg Q6HR PRN Administration Nausea / Vomiting Sodium Chloride 10 ml 06/02/20 01:00 06/02/20 10:36 Normal Saline Flush 0.9% IVP Not Given 0100,0900,1700 MORE Sucralfate 1 gm 06/02/20 13:00 06/02/20 13:09 Carafate PO 1 gm 0700,1100,1600,2200 MORE Administration - Lab Result Fish Bone Diagrams: 06/02/20 05:32 06/02/20 05:32 - Additional Planning My Orders: My Active Orders 06/02/20 General Surgery Consult [CONS] Routine 06/02/20 10:00 Gabapentin [Neurontin] 300 mg PO TID 06/02/20 13:00 Sucralfate [Carafate] 1 gm PO 0700,1100,1600,2200 06/02/20 Dinner Soft (Low Fiber) Diet [DIET] 06/02/20 21:00 Pantoprazole [Protonix] 40 mg IVP BID Subjective - Subjective Patient Reports: Feeling Better Objective Vital Signs: Vital Signs - 24 hr 06/01/20 06/01/20 06/01/20 16:22 17:45 18:11 Temperature 36.8 C 37.3 C Heart Rate 86 87 Heart Rate [ 74 Brachial] Respiratory 16 16 18 Rate Blood Pressure 167/92 H 130/64 Blood Pressure 141/73 H [Right Brachial artery] O2 Saturation 99 98 100 06/01/20 06/02/20 06/02/20 20:58 00:00 00:30 Temperature 37.3 C Heart Rate Heart Rate [ 82 79 78 Brachial] Respiratory 18 16 Rate Blood Pressure Blood Pressure 112/68 111/37 L 112/58 L [Right Brachial artery] O2 Saturation 100 100 0806/02/20 06/02/20 04:25 07:35 11:38 Temperature 37.1 C 37.0 C 37.2 C Heart Rate Heart Rate [ 77 73 76 Brachial] Respiratory 20 18 16 Rate Blood Pressure Blood Pressure 121/60 106/61 123/67 [Right Brachial artery] O2 Saturation 99 99 100 Oxygen O2 Source Room air I&O (Last 24 Hrs): Intake and Output Totals x24h 05/31/20 06/01/20 06/02/20 23:59 23:59 23:59 Intake Total 2369.17 1923.340 Output Total 325 950 Balance 2044.17 973.340 General: Alert, Oriented x3, No acute distress HEENT: Atraumatic Neck: Supple Lymphatic: no adenopathy Neuro: Alert, Non Focal, Oriented Times 3 Cardiovascular: Regular rate, Normal S1, Normal S2 Respiratory: Chest non-tender, No respiratory distress Abdomen: Normal bowel sounds, Soft, No tenderness Extremities: Normal pulses - Results Results: Laboratory Results WBC 19.1 x10^3/uL (4.8-10.8) H 06/02/20 05:32 RBC 4.68 10^6/uL (4.70-6.10) L 06/02/20 05:32 Hgb 14.6 g/dL (14.0-18.0) 06/02/20 05:32 Hct 42.4 % (42.0-52.0) 06/02/20 05:32 MCV 90.6 fL (80.0-94.0) 06/02/20 05:32 MCH 31.2 pg (27.0-31.0) H 06/02/20 05:32 MCHC 34.4 g/dL (32.0-36.0) 06/02/20 05:32 RDW 12.6 % (12.0-15.0) 06/02/20 05:32 Plt Count 216 10^3/uL (130-450) 06/02/20 05:32 MPV 10.2 fL (7.4-11.4) 06/02/20 05:32 Neut # (Auto) 14.8 10^3/uL (1.5-6.6) H 06/02/20 05:32 Lymph # (Auto) 2.5 10^3/uL (1.5-3.5) 06/02/20 05:32 [place] # (Auto) 1.4 10^3/uL (0.0-1.0) H 06/02/20 05:32 Eos # (Auto) 0.1 10^3/uL (0.0-0.7) 06/02/20 05:32 Baso # (Auto) 0.1 10^3/uL (0.0-0.1) 06/02/20 05:32 Absolute Nucleated RBC 0.00 x10^3/uL 06/02/20 05:32 Nucleated RBC % 0.0 /100WBC 06/02/20 05:32 Manual Slide Review Indicated 06/01/20 14:25 RBC Morph Micro Appear 1+ ANISOCYTOSIS (NORMAL) 06/01/20 14:25 VBG pH 7.477 (7.31-7.41) H 06/01/20 14:25 VBG pCO2 23.4 mmHg (41-51) L 06/01/20 14:25 VBG pO2 50.9 mmHg (25-47) H 06/01/20 14:25 VBG HCO3 16.9 mmol/L (23-28) L 06/01/20 14:25 VBG Total CO2 17.6 mmol/L (24-29) L 06/01/20 14:25 VBG O2 Saturation 88.2 % (60-80) H 06/01/20 14:25 VBG Base Excess -4.1 mmol/L (-2 - +2) L 06/01/20 14:25 Sodium 135 mmol/L (135-145) 06/02/20 05:32 Potassium 3.9 mmol/L (3.5-5.0) 06/02/20 05:32 Chloride 106 mmol/L (101-111) 06/02/20 05:32 Carbon Dioxide 22 mmol/L (21-32) 06/02/20 05:32 Anion Gap 7.0 (6-13) 06/02/20 05:32 BUN 14 mg/dL (6-20) 06/02/20 05:32 Creatinine 0.7 mg/dL (0.6-1.2) 06/02/20 05:32 Estimated GFR (MDRD) 112 (>89) 06/02/20 05:32 Glucose 183 mg/dL (70-100) H 06/02/20 05:32 Glycated Hemoglobin 6.9 % (4.6-6.2) H 06/02/20 05:32 Estim Average Glucose 151 (70-100) H 06/02/20 05:32 Lactic Acid 0.8 mmol/L (0.5-2.2) 06/02/20 05:32 Calcium 8.4 mg/dL (8.5-10.3) L 06/02/20 05:32 Total Bilirubin 1.3 mg/dL (0.2-1.0) H 06/01/20 14:25 AST 18 IU/L (10-42) 06/01/20 14:25 ALT 19 IU/L (10-60) 06/01/20 14:25 Alkaline Phosphatase 81 IU/L (42-121) 06/01/20 14:25 Troponin I High Sens 6.3 ng/L (2.3-19.7) 06/01/20 14:25 Total Protein 7.5 g/dL (6.7-8.2) 06/01/20 14:25 Albumin 4.5 g/dL (3.2-5.5) 06/01/20 14:25 Globulin 3.0 g/dL (2.1-4.2) 06/01/20 14:25 Albumin/Globulin Ratio 1.5 (1.0-2.2) 06/01/20 14:25 Lipase 33 U/L (22-51) 06/01/20 14:25 Urine Color YELLOW 06/01/20 16:45 Urine Clarity CLEAR (CLEAR) 06/01/20 16:45 Urine pH 5.5 PH (5.0-7.5) 06/01/20 16:45 Ur Specific [employer] 1.010 (1.002-1.030) 06/01/20 16:45 Urine Protein TRACE mg/dL (NEGATIVE) 06/01/20 16:45 Urine Glucose (UA) >=1000 mg/dL (NEGATIVE) H 06/01/20 16:45 Urine Ketones 15 mg/dL (NEGATIVE) H 06/01/20 16:45 Urine Occult Blood TRACE-LYSE (NEGATIVE) 06/01/20 16:45 Urine Nitrite NEGATIVE (NEGATIVE) 06/01/20 16:45 Urine Bilirubin NEGATIVE (NEGATIVE) 06/01/20 16:45 Urine Urobilinogen 0.2 (NORMAL) E.U./dL (NORMAL) 06/01/20 16:45 Ur Leukocyte Esterase NEGATIVE (NEGATIVE) 06/01/20 16:45 Ur Microscopic Review NOT INDICATED 06/01/20 16:45 Urine Culture Comments NOT INDICATED 06/01/20 16:45 Serum Ketones NEGATIVE (NEGATIVE) 06/01/20 14:25 - Procedures Procedures: Procedures EXCISION OF ASCENDING COLON, ENDO, DIAGN (08/16/18) EXCISION OF LOWER ESOPHAGUS, ENDO, DIAGN (08/16/18) EXCISION OF RECTUM, ENDO (08/16/18) EXCISION OF SIGMOID COLON, ENDO (08/16/18) EXCISION OF STOMACH, ENDO (08/16/18) EXCISION OF STOMACH, PYLORUS, ENDO, DIAGN (08/16/18) ABX Reporting Has patient been on IV antibiotics over the past 48 hours?: No Current Medications - Current Medications Current Medications: Active Medications Calcium Carbonate/Glycine (Tums) 500 mg PO BID MORE Gabapentin (Neurontin) 300 mg PO TID [facility] Last Admin: 06/02/20 14:29 Dose: Not Given Documented by: Hydromorphone HCl (Dilaudid Inj Syringe) 0.5 mg IVP Q3H PRN PRN Reason: PAIN Last Admin: 06/02/20 13:01 Dose: 0.5 mg Documented by: Dextrose/Sodium Chloride (D5ns) 1,000 mls @ 100 mls/hr IV .Q10H [facility] Last Infusion: 06/02/20 15:20 Dose: Infused Documented by: Insulin Glargine (Lantus Solostar) 5 unit SUBQ QPM [facility] Last Admin: 06/01/20 21:10 Dose: 5 unit Documented by: Insulin Human Regular (Humulin R) 1 - 5 unit SUBQ Q6HR [facility]; Protocol Last Admin: 06/02/20 13:02 Dose: 2 unit Documented by: Lisinopril (Zestril) 20 mg PO DAILY [facility] Last Admin: 06/02/20 10:32 Dose: 20 mg Documented by: Lorazepam (Ativan) 0.5 mg PO Q12H PRN PRN Reason: Anxiety Last Admin: 06/02/20 10:40 Dose: 0.5 mg Documented by: Multi-Ingredient Mouthwash/Gargle () 30 ml PO Q4H PRN PRN Reason: Abdominal Pain Nicotine (Nicoderm) 1 patch TOP DAILY [facility] Last Admin: 06/02/20 10:29 Dose: 1 patch Documented by: Ondansetron HCl (Zofran Inj) 4 mg IVP Q6HR PRN PRN Reason: Nausea / Vomiting Last Admin: 06/02/20 13:02 Dose: 4 mg Documented by: Pantoprazole Sodium (Protonix) 40 mg IVP BID [facility] Sodium Chloride (Normal Saline Flush 0.9%) 10 ml IVP PRN PRN PRN Reason: NEEDED PER PROVIDER ORDERS Sodium Chloride (Normal Saline Flush 0.9%) 10 ml IVP 0100,0900,1700 [facility] Last Admin: 06/02/20 10:36 Dose: Not Given Documented by: Sucralfate (Carafate) 1 gm PO 0700,1100,1600,2200 [facility] Last Admin: 06/02/20 13:09 Dose: 1 gm Documented by: Lisinopril 40 mg PO DAILY 04/07/16 Sucralfate [Carafate] 1 gm PO QID 08/15/18 Insulin Glargine [Lantus Solostar] 7 units QPM 06/01/20 Pantoprazole Sodium 20 mg PO DAILY 06/01/20 Gabapentin 300 mg PO TID 06/02/20 glipiZIDE [Glipizide] 15 mg PO BID 06/02/20
[2020-06-02] MEDS: INSULIN ASPART 300 UNIT/3 ML PEN SUBQ SCH ×2 (16:47→21:08)
[2020-06-02] MEDS: GI COCKTAIL 120 ML BOTTLE PO PRN ×2 (19:15→23:34)
[2020-06-02] MEDS: PANTOPRAZOLE 40 MG VIAL IVP SCH (20:49)
[2020-06-02] MEDS: SODIUM CHLORIDE FLUSH 0.9% 10 ML SYRINGE IVP PRN (20:49)
[2020-06-02] MEDS: CALCIUM CARBONATE CHEW 500 MG TABLET PO SCH (20:49)
[2020-06-02] MEDS: INSULIN GLARGINE 300 UNIT/3 ML PEN SUBQ SCH (21:08)
[2020-06-03] MEDS: DEXTROSE 5%-0.9% NACL 1,000 ML IV SCH (01:25)
[2020-06-03 05:28] LABS: BASOPHILS # (AUTO) 0.1 10^3/uL (0.0-0.1); BASOPHILS % (AUTO) 0.6 %; EOSINOPHILS # (AUTO) 0.1 10^3/uL (0.0-0.7); EOSINOPHILS % (AUTO) 1.1 %; HGB - HEMOGLOBIN 13.4 g/dL (14.0-18.0); LYMPHOCYTES # (AUTO) 3.1 10^3/uL (1.5-3.5); LYMPHOCYTES % (AUTO) 32.3 %; MEAN CORPUSCULAR HEMOGLOBIN 30.7 pg (27.0-31.0); MEAN CORPUSCULAR HGB CONC 32.7 g/dL (32.0-36.0); MEAN CORPUSCULAR VOLUME 93.8 fL (80.0-94.0); MEAN PLATELET VOLUME 10.3 fL (7.4-11.4); MONOCYTES # (AUTO) 0.7 10^3/uL (0.0-1.0); MONOCYTES % (AUTO) 7.2 %; NEUTROPHILS # (AUTO) 5.6 10^3/uL (1.5-6.6); NEUTROPHILS % (AUTO) 58.3 %; PLT - PLATELET COUNT 184 10^3/uL (130-450); RED BLOOD COUNT 4.37 10^6/uL (4.70-6.10); RED CELL DISTRIBUTION WIDTH 12.8 % (12.0-15.0); WHITE BLOOD COUNT 9.6 x10^3/uL (4.8-10.8)
[2020-06-03 05:41] LABS: CALCIUM 8.4 mg/dL (8.5-10.3); CREATININE 0.8 mg/dL (0.6-1.2)
[2020-06-03] MEDS: GABAPENTIN 300 MG CAPSULE PO SCH (05:59)
[2020-06-03] MEDS: SUCRALFATE 1 GM/10 ML UDC PO SCH ×2 (06:00→11:30)
--- NOTE | 2020-06-03 07:54 | PROVIDER PROGRESS NOTE ---
Subjective - Prog Note Date Prog Note Date: 06/03/20 - Subjective Pt reports feeling: Improved (still having pain with eating however tolerating diet) Objective - Vital Signs/Intake & Output Vital Signs: Vital Signs x48h Temp Pulse Resp BP Pulse Ox 06/03/20 05:00 37.1 C 78 20 121/58 L 97 Intake & Output: Intake & Output 05/31/20 06/01/20 06/02/20 06/03/20 23:59 23:59 23:59 23:59 Intake Total 2369.17 2610.340 1000 Output Total 325 1300 Balance 2044.17 1232.659 8852 - Objective General Appearance: positive: No acute distress, Alert Eyes Bilateral: positive: Normal inspection Neck: positive: No JVD, Trachea midline Respiratory: positive: No respiratory distress Abdomen: positive: Non-tender, No distention Neurologic/Psychiatric: positive: Oriented x3 - Lab Results Fish Bones: 06/03/20 04:55 06/03/20 04:55 Other Labs: Lab Results x24hrs 06/03/20 06/03/20 Range/Units 04:55 04:55 WBC 9.6 (4.8-10.8) x10^3/uL RBC 4.37 L (4.70-6.10) 10^6/uL Hgb 13.4 L (14.0-18.0) g/dL Hct 41.0 L (42.0-52.0) % MCV 93.8 (80.0-94.0) fL MCH 30.7 (27.0-31.0) pg MCHC 32.7 (32.0-36.0) g/dL RDW 12.8 (12.0-15.0) % Plt Count 184 (130-450) 10^3/uL MPV 10.3 (7.4-11.4) fL Neut # (Auto) 5.6 (1.5-6.6) 10^3/uL Lymph # (Auto) 3.1 (1.5-3.5) 10^3/uL [place] # (Auto) 0.7 (0.0-1.0) 10^3/uL Eos # (Auto) 0.1 (0.0-0.7) 10^3/uL Baso # (Auto) 0.1 (0.0-0.1) 10^3/uL Absolute Nucleated RBC 0.00 x10^3/uL Nucleated RBC % 0.0 /100WBC Sodium 138 (135-145) mmol/L Potassium 4.0 (3.5-5.0) mmol/L Chloride 106 (101-111) mmol/L Carbon Dioxide 26 (21-32) mmol/L Anion Gap 6.0 (6-13) BUN 10 (6-20) mg/dL Creatinine 0.8 (0.6-1.2) mg/dL Estimated GFR (MDRD) 96 (>89) Glucose 175 H (70-100) mg/dL Calcium 8.4 L (8.5-10.3) mg/dL Assessment/Plan - Problem List (1) Esophageal thickening Impression: He is feeling better and would like to go home. He is tolerating adequate po. He is still having pain with eating/ pain with swallowing. Plan follow up in the surgery office next week with me He states he has an appointment with his primary care provider tomorrow. I will review his pathology next week. If unremarkable consider manometry for possible esophageal dysmotility
[2020-06-03 08:28] VITALS: BP 122/58
[2020-06-03] MEDS: INSULIN ASPART 300 UNIT/3 ML PEN SUBQ SCH ×2 (09:12→12:17)
[2020-06-03] MEDS: CALCIUM CARBONATE CHEW 500 MG TABLET PO SCH (09:14)
[2020-06-03] MEDS: lisinopriL 20 MG TABLET PO SCH (09:15)
[2020-06-03] MEDS: HYDROmorphone 0.5 MG/0.5 ML SYRINGE IVP PRN (09:15)
[2020-06-03] MEDS: ONDANSETRON 4 MG/2 ML VIAL IVP PRN (09:16)
[2020-06-03] MEDS: SODIUM CHLORIDE FLUSH 0.9% 10 ML SYRINGE IVP SCH (09:20)
[2020-06-03] MEDS: NICOTINE 14 MG PATCH TOP SCH (09:20)
[2020-06-03] MEDS: GI COCKTAIL 120 ML BOTTLE PO PRN (09:22)
[2020-06-03] MEDS: PANTOPRAZOLE 40 MG VIAL IVP SCH (09:23)
[2020-06-03] MEDS: SODIUM CHLORIDE FLUSH 0.9% 10 ML SYRINGE IVP PRN (09:35)
[2020-06-03] MEDS ORDERED: ACETAMINOPHEN 325 MG TABLET PO PRN (10:14)
--- NOTE | 2020-06-03 10:31 | Discharge Plan ---
Discharge Plan Problem Reviewed?: Yes Disposition: Home, Self Care Condition: Stable Prescriptions: Gi Cocktail 30 ml PO Q4H PRN #2 bottle PRN Reason: Abdominal Pain Pantoprazole Sodium 40 mg PO DAILY #30 Diet: Diabetic Activity Restrictions: Activity as Tolerated Shower Restrictions: No (fall precaution) Instruction Topics: Esophagitis Health Concerns: esophagitis Plan of Treatment: you had EGD and biopsy done at hospital, you feel better for your swallowing. Refueling Rampman also consult with you. advise you followup with your GI surgeon Dr. Jason Chapman, in one week to review your biopsy result and prognosis. advise you quit your cigarette smoking as well. Care Goals: stabilization and improvement of your medical conditions Assessment: discussed the care plan with you, you understood and agreed. Additional Instructions or Follow Up instructions: you may followup with your PCP in one to two weeks, followup with your GI surgeon in one week. Should your symptoms return or worsen, you may present ER or call 911 for help No Smoking: If you smoke, Please STOP! Call for help. Follow-up with: Seymour Taylor MD [Primary Care Provider] -
--- NOTE | 2020-06-03 10:42 | DISCHARGE SUMMARY ---
Discharge Summary Admit Date: 06/01/20 Discharge Date: 06/03/20 Discharging Provider: Ghassan Layne Primary Care Provider: Seymour Pichardo Condition at Discharge: Stable Discharge Disposition: 01 Home, Self Care Discharge Facility Name: home - DIAGNOSES Discharge Diagnoses with Status of Each Condition: (1) Dysphagia Patient And significantly improved, he ate breakfast Resolved difficult. Power Cleaner Operator was consulted for patient,Patient had a EGD done on yesterday, per surgeon found patient has esophagitis. Biopsy was done for patient. Surgeon recommended patient can be DC to home, follow-up with surgeon in 1 week to review the biopsy results and patient's progress. Patient's PPI dosage increases to 40 mg daily. Patient report GI cocktail really helped her release symptoms. GI cocktail is a prescription for patient PRN. (2) Abdominal pain Resolved. (3) Leukocytosis resolved. (4) Diabetes stable/chronic (5) GERD (gastroesophageal reflux disease) PPI dosage increases to 40 mg daily, patient is prescribed GI cocktail PRN (6) Anxiety stable/chronic (6) Diabetic neuropathy stable/chronic (7) Hypertension stable/chronic - HPI History of Present Illness: refer from Dr. Ceron's HPI on 06/01/2020 Patient is a 69-year-old male with history of diabetes mellitus, hypertension, anxiety and GERD who presented to the ED via EMS with complaint of abdominal pain, and odynophagia. His symptoms have been going on for weeks but got worse in the past 4 days to the point where he has not eaten anything for 4 days. Even attempting to drink water causes a sharp pain that radiates down to his stomach and causes nausea and vomiting. He does not have a fever but reports chills and night sweats. Over the past 1 year he has experienced 36lbs of unintentional weight loss. He has a history of smoking cigarettes for the past 47 years. In the ED work-up included a CT scan of the abdomen pelvis which showed distal esophageal thickening for which a neoplasm could not be excluded. An EGD was recommended. There were also findings suggestive of gastroenteritis. The patient had also reported diarrhea daily for the past 4 days. He was also found to have a lactic acid of 2.6 and a white blood cell count of 23. As a result of this findings he is being admitted for further work-up and treatment. - HOSPITAL COURSE Hospital Course: Patient was admitted for abdominal pain, and odynophagia. Patient reported he feel burning and pain on from oral to stomach area. CT of abdomen and pelvis reveals thickening of esophagus, Otherwise unremarkable. Patient had a EGD done in the hospital, per surgeon report no neoplasm found in the EGD study, multiple biopsies were done for patient. Patient was also given GI cocktail and intravenous Protonix, And bowel rest. After treatment, patient feels much better and that he ate breakfast Without a difficult. Patient request to be discharged home today. Surgeon agreed discharge patient and the recommendation patient follow-up him in the office in 1 week. Patient was prescribed GI cocktail as needed, and increases PPI to 40 mg daily and recommend patient follow-up GI surgeon in 1 week. Advised patient to quit smoking as well - ALLERGIES Allergies/Adverse Reactions: Allergies Allergy/AdvReac Type Severity Reaction Status Date / Time metformin AdvReac Intermediate GI Verified 06/01/20 14:41 sulfamethoxazole AdvReac Intermediate GI Verified 06/01/20 14:41 [From Bactrim] trimethoprim [From Bactrim] AdvReac Intermediate GI Verified 06/01/20 14:41 iodine AdvReac Unknown Verified 06/01/20 14:41 - MEDICATIONS Home Medications: Ambulatory Orders Medication Instructions Recorded Confirmed Lisinopril 40 mg PO DAILY 04/07/16 06/01/20 Sucralfate [Carafate] 1 gm PO QID 08/15/18 06/01/20 Insulin Glargine [Lantus Solostar] 7 units QPM 06/01/20 06/02/20 Gabapentin 300 mg PO TID 06/02/20 06/02/20 glipiZIDE [Glipizide] 15 mg PO BID 06/02/20 06/02/20 Gi Cocktail 30 ml PO Q4H PRN #2 bottle 06/03/20 Omeprazole 40 mg PO DAILY #30 capsule. 06/03/20 - PHYSICAL EXAM AT DISCHARGE General Appearance: positive: No acute distress, Alert. negative: Lethargic Eyes Bilateral: positive: Normal inspection, PERRL, No lid inflammation ENT: positive: ENT inspection nml, No signs of dehydration. negative: Purulent nasal drainage Neck: positive: Nml inspection, Thyroid nml, No JVD. negative: Thyromegaly, Stiff neck, Tracheal deviation Respiratory: positive: Chest non-tender, No respiratory distress. negative: Wheezes, Rales, Rhonchi Cardiovascular: positive: Regular rate & rhythm, No murmur, No gallop. negative: Irregularly irregular, Tachycardia, Bradycardia, Systolic murmur, Diastolic murmur Peripheral Pulses: positive: 2+ Abdomen: positive: Non-tender, No organomegaly, Nml bowel sounds, No distention. negative: Tenderness, Guarding, Rebound, Mass Back: positive: Nml inspection. negative: CVA tenderness (R), CVA tenderness (L) Skin: positive: Color nml, No rash, Warm, Dry. negative: Cyanosis, Diaphoresis, Pallor Extremities: positive: Non-tender, Full ROM, Nml appearance. negative: Calf tenderness, Johnathon's sign/cords Neurologic/Psychiatric: positive: Oriented x3, Motor nml, Sensation nml, Mood/affect nml. negative: Weakness, Sensory loss, Facial droop, Slurred/abnml speech, Depressed mood/affect - LABS Result Diagrams: 06/03/20 04:55 06/03/20 04:55 - FOLLOW UP Follow Up: you had EGD and biopsy done at hospital, you feel better for your swallowing. Power Cleaner Operator also consult with you. advise you followup with your GI surgeon Dr. Jason Chapman, in one week to review your biopsy result and prognosis. advise you quit your cigarette smoking as well. you may followup with your PCP in one to two weeks, followup with your GI surgeon in one week. Should your symptoms return or worsen, you may present ER or call 911 for help - TIME SPENT Time Spent in Discharge (Minutes): 30
== END 2020-06-03 12:00 | disposition home or self-care (01) | DRG 392 ==
LOC: EDUNIT# → ED 14:09 → MS2 17:11 → OBSVTOIN 06-02 11:42
PROVIDERS: ADMIT Internal Medicine; ATTEND Internal Medicine
PROC: 0DB68ZX Excision of Stomach, Via Natural or Artificial Opening Endoscopic, Diagnostic (ICD-10-PCS; 2020-06-02)
PROC: 0DB48ZX Excision of Esophagogastric Junction, Via Natural or Artificial Opening Endoscopic, Diagnostic (ICD-10-PCS; principal; 2020-06-02 13:45)
DX: R10.13 Epigastric pain (principal); R11.2 Nausea with vomiting, unspecified; K21.0 Gastro-esophageal reflux disease with esophagitis; D72.823 Leukemoid reaction; Z68.1 Body mass index [BMI] 19.9 or less, adult; R13.10 Dysphagia, unspecified; R63.4 Abnormal weight loss; E11.65 Type 2 diabetes mellitus with hyperglycemia; E11.40 Type 2 diabetes mellitus with diabetic neuropathy, unspecified; I10 Essential (primary) hypertension; F41.9 Anxiety disorder, unspecified; F41.0 Panic disorder [episodic paroxysmal anxiety]; F17.210 Nicotine dependence, cigarettes, uncomplicated; Z79.4 Long term (current) use of insulin; Z72.89 Other problems related to lifestyle; Z79.899 Other long term (current) drug therapy
CPT/HCPCS: 36415; 51701; 74177; 80048; 80053; 81003; 82009; 82803; 83036; 83605; 83690; 84484; 85025; 87040; 87081; 93005; 96361; 96365; 96366; 96375; 96376; 99284; 99285; A9270; G0378; J1170; J1815; J7120; Q9967; 81001; 87086

== ENCOUNTER 2021-01-18 09:15 | Outpatient (CLI) | payer MEDICARE, MEDICAID ==
[2021-01-18 14:09] LABS: BASOPHILS # (AUTO) 0.1 10^3/uL (0.0-0.1); BASOPHILS % (AUTO) 0.8 %; EOSINOPHILS # (AUTO) 0.5 10^3/uL (0.0-0.7); EOSINOPHILS % (AUTO) 3.7 %; HCT - HEMATOCRIT 47.8 % (42.0-52.0); HGB - HEMOGLOBIN 15.7 g/dL (14.0-18.0); LYMPHOCYTES # (AUTO) 2.9 10^3/uL (1.5-3.5); LYMPHOCYTES % (AUTO) 21.4 %; MEAN CORPUSCULAR HGB CONC 32.8 g/dL (32.0-36.0); MEAN CORPUSCULAR VOLUME 94.5 fL (80.0-94.0); MEAN PLATELET VOLUME 11.2 fL (7.4-11.4); MONOCYTES # (AUTO) 0.6 10^3/uL (0.0-1.0); MONOCYTES % (AUTO) 4.4 %; NEUTROPHILS # (AUTO) 9.4 10^3/uL (1.5-6.6); PLT - PLATELET COUNT 223 10^3/uL (130-450); RED BLOOD COUNT 5.06 10^6/uL (4.70-6.10); RED CELL DISTRIBUTION WIDTH 13.2 % (12.0-15.0); WHITE BLOOD COUNT 13.7 x10^3/uL (4.8-10.8)
[2021-01-18 15:16] LABS: ALBUMIN 4.8 g/dL (3.2-5.5); ALBUMIN/GLOBULIN RATIO 1.7 (1.0-2.2); ALKALINE PHOSPHATASE 79 IU/L (42-121); ALT ALANINE AMINOTRANSFERASE 24 IU/L (10-60); AST ASPARTATE AMINOTRANSFERASE 19 IU/L (10-42); BILIRUBIN,TOTAL 0.6 mg/dL (0.2-1.0); BUN - BLOOD UREA NITROGEN 16 mg/dL (6-20); CALCIUM 9.7 mg/dL (8.5-10.3); CARBON DIOXIDE - CO2 25 mmol/L (21-32); CHLORIDE 105 mmol/L (101-111); CHOL/HDL RATIO 5.8 (<5.0); CHOLESTEROL 179 mg/dL; CREATININE 0.8 mg/dL (0.6-1.2); GFR - MDRD 96 (>89); GLUCOSE 210 mg/dL (70-100); HDL CHOLESTEROL 31 mg/dL; LDL CHOLESTEROL,CALCULATED 80 mg/dL; LDL/HDL RATIO 2.6 (<3.6); SODIUM 139 mmol/L (135-145); TOTAL PROTEIN 7.7 g/dL (6.7-8.2); TRIGLYCERIDES 339 mg/dL; VLDL CHOLESTEROL 68 mg/dL
[2021-01-18 19:32] LABS: ESTIMATED AVERAGE GLUCOSE 169 mg/dL (70-100); HEMOGLOBIN A1c% 7.5 % (4.27-6.07)
== END 2021-01-18 09:16 | disposition home or self-care (01) ==
LOC: LAB.S 09:15
PROVIDERS: ATTEND Internal Medicine
DX: I10 Essential (primary) hypertension (principal); E11.8 Type 2 diabetes mellitus with unspecified complications; Z12.5 Encounter for screening for malignant neoplasm of prostate
CPT/HCPCS: 36415; 80053; 80061; 83036; 85025; G0103; 83721; 84153

== ENCOUNTER 2021-04-20 09:18 | Outpatient (CLI) | payer MEDICARE, MEDICAID ==
[2021-04-20 20:36] LABS: ESTIMATED AVERAGE GLUCOSE 180 mg/dL (70-100); HEMOGLOBIN A1c% 7.9 % (4.27-6.07)
== END 2021-04-20 09:19 | disposition home or self-care (01) ==
LOC: LAB.S 09:18
PROVIDERS: ATTEND Internal Medicine
DX: E11.8 Type 2 diabetes mellitus with unspecified complications (principal)
CPT/HCPCS: 36415; 83036

== ENCOUNTER 2021-07-20 15:26 | Outpatient (CLI) | payer MEDICARE, MEDICAID ==
[2021-07-20 20:10] LABS: ALBUMIN 4.6 g/dL (3.2-5.5); ALBUMIN/GLOBULIN RATIO 1.5 (1.0-2.2); BILIRUBIN,TOTAL 0.7 mg/dL (0.2-1.0); CALCIUM 9.1 mg/dL (8.5-10.3); CREATININE 0.7 mg/dL (0.6-1.2); POTASSIUM 3.7 mmol/L (3.5-5.0); TOTAL PROTEIN 7.6 g/dL (6.7-8.2)
[2021-07-20 20:48] LABS: ESTIMATED AVERAGE GLUCOSE 163 mg/dL (70-100); HEMOGLOBIN A1c% 7.3 % (4.27-6.07)
== END 2021-07-20 15:27 | disposition home or self-care (01) ==
LOC: LAB.S 15:26
PROVIDERS: ATTEND Internal Medicine
DX: I10 Essential (primary) hypertension (principal); E11.65 Type 2 diabetes mellitus with hyperglycemia
CPT/HCPCS: 36415; 80053; 83036

== ENCOUNTER 2022-01-14 08:55 | Outpatient (CLI) | payer MEDICARE, MEDICAID ==
[2022-01-14 15:30] LABS: BASOPHILS # (AUTO) 0.1 10^3/uL (0.0-0.1); EOSINOPHILS # (AUTO) 0.5 10^3/uL (0.0-0.7); EOSINOPHILS % (AUTO) 4.9 %; HCT - HEMATOCRIT 47.5 % (42.0-52.0); HGB - HEMOGLOBIN 15.9 g/dL (14.0-18.0); LYMPHOCYTES # (AUTO) 2.6 10^3/uL (1.5-3.5); LYMPHOCYTES % (AUTO) 24.3 %; MEAN CORPUSCULAR HEMOGLOBIN 31.2 pg (27.0-31.0); MEAN CORPUSCULAR HGB CONC 33.5 g/dL (32.0-36.0); MEAN CORPUSCULAR VOLUME 93.3 fL (80.0-94.0); MEAN PLATELET VOLUME 10.9 fL (7.4-11.4); MONOCYTES # (AUTO) 0.6 10^3/uL (0.0-1.0); MONOCYTES % (AUTO) 5.7 %; NEUTROPHILS # (AUTO) 6.8 10^3/uL (1.5-6.6); NEUTROPHILS % (AUTO) 63.2 %; PLT - PLATELET COUNT 228 10^3/uL (130-450); RED BLOOD COUNT 5.09 10^6/uL (4.70-6.10); RED CELL DISTRIBUTION WIDTH 13.2 % (12.0-15.0); WHITE BLOOD COUNT 10.7 x10^3/uL (4.8-10.8)
[2022-01-14 17:08] LABS: ALBUMIN 4.8 g/dL (3.2-5.5); ALBUMIN/GLOBULIN RATIO 1.8 (1.0-2.2); ALKALINE PHOSPHATASE 81 IU/L (42-121); ALT ALANINE AMINOTRANSFERASE 22 IU/L (10-60); AST ASPARTATE AMINOTRANSFERASE 17 IU/L (10-42); BILIRUBIN,TOTAL 0.5 mg/dL (0.2-1.0); BUN - BLOOD UREA NITROGEN 14 mg/dL (6-20); CALCIUM 9.5 mg/dL (8.5-10.3); CARBON DIOXIDE - CO2 25 mmol/L (21-32); CHLORIDE 101 mmol/L (101-111); CHOL/HDL RATIO 5.5 (<5.0); CHOLESTEROL 160 mg/dL; CREATININE 0.8 mg/dL (0.6-1.2); GFR - MDRD 96 (>89); GLUCOSE 165 mg/dL (70-100); HDL CHOLESTEROL 29 mg/dL; LDL CHOLESTEROL,CALCULATED 73 mg/dL; LDL/HDL RATIO 2.5 (<3.6); POTASSIUM 4.6 mmol/L (3.5-5.0); SODIUM 136 mmol/L (135-145); TOTAL PROTEIN 7.5 g/dL (6.7-8.2); TRIGLYCERIDES 292 mg/dL; VLDL CHOLESTEROL 58 mg/dL
[2022-01-14 19:13] LABS: ESTIMATED AVERAGE GLUCOSE 160 mg/dL (70-100); HEMOGLOBIN A1c% 7.2 % (4.27-6.07)
== END 2022-01-14 08:56 | disposition home or self-care (01) ==
LOC: LAB.S 08:55
PROVIDERS: ATTEND Internal Medicine
DX: E11.9 Type 2 diabetes mellitus without complications (principal); Z12.5 Encounter for screening for malignant neoplasm of prostate
CPT/HCPCS: 36415; 80053; 80061; 83036; 85025; G0103; 83721; 84153

== ENCOUNTER 2022-05-17 11:14 | Outpatient (CLI) | payer MEDICARE, MEDICAID ==
[2022-05-17 15:10] LABS: ESTIMATED AVERAGE GLUCOSE 160 mg/dL (70-100); HEMOGLOBIN A1c% 7.2 % (4.27-6.07)
[2022-05-17 15:13] LABS: CALCIUM 9.7 mg/dL (8.5-10.3); CREATININE 0.8 mg/dL (0.6-1.2); POTASSIUM 3.9 mmol/L (3.5-5.0)
[2022-05-17 15:20] LABS: CREATININE,URINE 29.6 mg/dL; MICROALBUM/CREATININE RATIO,UR 47.3 ug/mg (<30.0); MICROALBUMIN,URINE 1.4 mg/dL (0-300.0)
== END 2022-05-17 11:15 | disposition home or self-care (01) ==
LOC: LAB.S 11:14
PROVIDERS: ATTEND Registered Nurse
DX: E11.8 Type 2 diabetes mellitus with unspecified complications (principal)
CPT/HCPCS: 36415; 80048; 82043; 82570; 83036

== ENCOUNTER 2023-03-14 09:04 | Outpatient (CLI) | payer MEDICARE, MEDICAID ==
[2023-03-14 14:22] LABS: BASOPHILS # (AUTO) 0.1 10^3/uL (0.0-0.1); BASOPHILS % (AUTO) 0.6 %; EOSINOPHILS # (AUTO) 0.5 10^3/uL (0.0-0.7); EOSINOPHILS % (AUTO) 4.5 %; HCT - HEMATOCRIT 47.4 % (42.0-52.0); HGB - HEMOGLOBIN 15.2 g/dL (14.0-18.0); LYMPHOCYTES # (AUTO) 2.6 10^3/uL (1.5-3.5); LYMPHOCYTES % (AUTO) 24.9 %; MEAN CORPUSCULAR HEMOGLOBIN 30.8 pg (27.0-31.0); MEAN CORPUSCULAR HGB CONC 32.1 g/dL (32.0-36.0); MEAN PLATELET VOLUME 10.6 fL (7.4-11.4); MONOCYTES # (AUTO) 0.6 10^3/uL (0.0-1.0); MONOCYTES % (AUTO) 5.5 %; NEUTROPHILS # (AUTO) 6.7 10^3/uL (1.5-6.6); NEUTROPHILS % (AUTO) 64.2 %; PLT - PLATELET COUNT 246 10^3/uL (130-450); RED BLOOD COUNT 4.94 10^6/uL (4.70-6.10); RED CELL DISTRIBUTION WIDTH 13.2 % (12.0-15.0); WHITE BLOOD COUNT 10.4 x10^3/uL (4.8-10.8)
[2023-03-14 15:01] LABS: ALBUMIN 4.3 g/dL (3.2-5.5); ALBUMIN/GLOBULIN RATIO 1.3 (1.0-2.2); ALKALINE PHOSPHATASE 65 IU/L (42-121); ALT ALANINE AMINOTRANSFERASE 18 IU/L (10-60); AST ASPARTATE AMINOTRANSFERASE 16 IU/L (10-42); BILIRUBIN,TOTAL 0.7 mg/dL (0.2-1.0); BUN - BLOOD UREA NITROGEN 10 mg/dL (6-20); CALCIUM 9.1 mg/dL (8.5-10.3); CARBON DIOXIDE - CO2 27 mmol/L (21-32); CHLORIDE 108 mmol/L (101-111); CHOL/HDL RATIO 4.2 (<5.0); CHOLESTEROL 143 mg/dL; CREATININE 0.7 mg/dL (0.6-1.2); GFR - MDRD 111 (>89); GLUCOSE 145 mg/dL (70-100); HDL CHOLESTEROL 34 mg/dL; LDL CHOLESTEROL,CALCULATED 87 mg/dL; LDL/HDL RATIO 2.6 (<3.6); POTASSIUM 3.8 mmol/L (3.5-5.0); SODIUM 141 mmol/L (135-145); TOTAL PROTEIN 7.5 g/dL (6.7-8.2); TRIGLYCERIDES 109 mg/dL; VLDL CHOLESTEROL 22 mg/dL
[2023-03-15 16:24] LABS: ESTIMATED AVERAGE GLUCOSE 137 mg/dL (70-100); HEMOGLOBIN A1c% 6.4 % (4.27-6.07)
== END 2023-03-14 09:05 | disposition home or self-care (01) ==
LOC: LAB.S 09:04
PROVIDERS: ATTEND Registered Nurse
DX: E11.8 Type 2 diabetes mellitus with unspecified complications (principal); Z79.899 Other long term (current) drug therapy; Z13.220 Encounter for screening for lipoid disorders; Z12.5 Encounter for screening for malignant neoplasm of prostate
CPT/HCPCS: 36415; 80053; 80061; 83036; 85025; G0103; 82043; 82570; 83721; 84153

== ENCOUNTER 2023-03-16 08:00 | Outpatient (CLI) | payer MEDICARE, MEDICAID ==
[2023-03-16 15:41] LABS: CREATININE,URINE 17.9 mg/dL; MICROALBUM/CREATININE RATIO,UR 39.1 ug/mg (<30.0); MICROALBUMIN,URINE 0.7 mg/dL (0-300.0)
== END 2023-03-16 23:59 | disposition home or self-care (01) ==
LOC: LAB 08:00
PROVIDERS: ATTEND Registered Nurse
DX: E11.8 Type 2 diabetes mellitus with unspecified complications (principal)
CPT/HCPCS: 82043; 82570

== ENCOUNTER 2023-12-18 08:38 | Outpatient (CLI) | payer MEDICARE, MEDICAID ==
[2023-12-18 15:49] LABS: CALCIUM 9.4 mg/dL (8.5-10.3); CREATININE 0.7 mg/dL (0.6-1.3); POTASSIUM 4.3 mmol/L (3.5-4.5)
[2023-12-18 15:54] LABS: ESTIMATED AVERAGE GLUCOSE 143 mg/dL (70-100); HEMOGLOBIN A1c% 6.6 % (4.27-6.07)
== END 2023-12-18 08:39 | disposition home or self-care (01) ==
LOC: LAB.S 08:38
PROVIDERS: ATTEND Registered Nurse
DX: E11.9 Type 2 diabetes mellitus without complications (principal)
CPT/HCPCS: 36415; 80048; 82043; 82570; 83036

== ENCOUNTER 2024-01-26 06:07 | Outpatient (CLI) | payer MEDICARE | END 2024-01-26 23:59 | disposition short-term general hospital (02) | LOC: EMS 06:07 | DX: R07.9 Chest pain, unspecified (principal); I10 Essential (primary) hypertension; F17.210 Nicotine dependence, cigarettes, uncomplicated | CPT/HCPCS: A0425; A0427 ==